=== PATIENT | female | born 1975 | race Caucasian/White ===

== ENCOUNTER 2017-02-01 21:25 | Inpatient (IN) | payer OTHER, MEDICARE ==
[~2017-02-01] VITALS: Ht 157.5 cm; Wt 78.0 kg
[~2017-02-01 21:25] MED LIST: BACT800T5 PO; CEPH500C3 PO; LASI20TA PO; MORP1INJ45 PO; OMEP20TA39 PO; ZOLP10TA3 PO; estrogen IM
[2017-02-01 21:28] VITALS: BP 150/93; PULSE 130; RESP 15; TEMP 99.2; O2SAT 100
--- NOTE | 2017-02-01 22:29 | PD ---
Physical Exam Date Seen by Provider: Feb 01, 2017 Time Seen by Provider: 22:26 Narrative 41 yo female here for evaluation of nausea and vomit and abdominal pain as well as diarrhea. Most of the pain is in the lower abdomen. On going since Saturday morning. no chest pain or SOB. Called doctor and told her to come here. BM is bile and mucosy per patient. No blood in emesis or BM. Pain is 7/10. Vitals sign stable. Patient awaiting bed placement. Data Data Last Documented VS Vital Signs Date Time Temp Pulse Resp B/P Pulse Ox O2 Delivery O2 Flow Rate FiO2 02/01/17 21:28 99.2 130 15 150/93 100 Room Air [facility] Medical Record Reviewed: Yes Supervised Visit with ARVIN: Pawan De Jesus Feb 01, 2017 22:29
[2017-02-01] MEDS ORDERED: SODIUM CHLOR 0.9% 1000 ML INJ 1,000 ML IV ONE (22:45)
[2017-02-01] MEDS ORDERED: ONDANSETRON HCL 4 MG/2 ML VIAL IV PUSH ONE (23:00)
--- NOTE | 2017-02-01 23:11 | PD ---
HPI Chief Complaint: GI Complaint Time Seen by Provider: 22:42 Travel History International Travel<30 days: No Contact w/Intl Traveler<30days: No Traveled to known affect area: No History of Present Illness HPI 41 y/o female presents with nonbloody emesis, diarrhea and lower abdominal pain. Location is Lower abdomen. Quality is sharp. She states no specific modifying factors. She denies migration of the pain. She states also over the past couple of days she's been having for she feels like her heart is going fast and getting sweaty. She states that she has no other concurrent complaints. PFSH Past Medical History Arthritis: No Asthma: No Autoimmune Disease: No Blood Disorders: No Anxiety: No Depression: No Heart Rhythm Problems: Yes (PALPITATIONS AND ERADIC HR) Cancer: Yes (CERVICAL CA WITH HYSTERECTOMY) Cardiovascular Problems: Yes (PALP, IRREG HEAR RATE) High Cholesterol: No Chemotherapy: No Chest Pain: No Congestive Heart Failure: No COPD: Yes (EMPHYSEMA) Cerebrovascular Accident: No Diabetes: Yes (diet controlled) Diminished Hearing: No Endocrine: No GERD: Yes Glaucoma: No Headaches: No Hepatitis: No Hiatal Hernia: No Hypertension: Yes Immune Disorder: No Implanted Vascular Access Dvce: Yes Kidney Stones: No Medical other: Yes (CHRONS) Neurologic: No Psychiatric: No Integumentary: Yes (MRSA IN L BUTTOCK 09/11) Migraines: Yes Myocardial Infarction: No Radiation Therapy: No Renal Failure: No Seizures: No Sickle Cell Disease: No Sleep Apnea: No Thyroid Disease: No Ulcer: No Tetanus Vaccination: < 5 Years Influenza Vaccination: No ?: Not Menopausal: Yes : 3 Para: 2 Miscarriage: 1 Past Surgical History Abdominal Surgery: No AICD: No Body Medical Devices: RODS SCREWS IN BACK Cardiac Surgery: No Cholecystectomy: Yes Ear Surgery: No Endocrine Surgery: No Eye Surgery: No Genitourinary Surgery: Yes (URETHRA/ SX REPAIR) Hysterectomy: Yes Joint Replacement: No Neurologic Surgery: No Oral Surgery: No Pacemaker: No Thoracic Surgery: No Tonsillectomy: Yes Social History Alcohol Use: No Tobacco Use: Yes (12/08 PPD) Substance Use: Yes (marijuana) Allergies-Medications (Allergen,Severity, Reaction): Coded Allergies: Aspirin (Verified Allergy, Intermediate, Nausea/Vomiting, 02/01/17) Contrast Media (Verified Adverse Reaction, Intermediate, VOMITING, 02/01/17 ) Nonsteroidal Anti-Inflammatory Agts (Verified Adverse Reaction, Intermediate, Nausea/Vomiting, 02/01/17) *MDRO Multi-Drug Resistant Organism (Verified Adverse Reaction, Unknown, ) MRSA Reported Meds & Prescriptions Reported Meds & Active Scripts Active Lasix (Furosemide) 20 Mg Tab 60 Mg PO DAILY 3 Days Keflex (Cephalexin Monohydrate) 500 Mg Cap 500 Mg PO QID Bactrim DS (Sulfamethoxazole-Trimethoprim DS) 1 Tab Tab 1 Tab PO BID 10 Days Hm Omeprazole (Omeprazole) 20 Mg Tab 40 Mg PO DAILY 30 Days Reported Morphine Sulfate Ir 15 mg (Morphine Sulfate) 15 Mg Tab 15 Mg PO Q6H PRN [estrogen] 40 Mg IM MONTHLY Ambien 10 Mg Tab (Zolpidem Tartrate) 10 Mg Tab 10 Mg PO HS Review of Systems Except as stated in HPI: all other systems reviewed are Neg Physical Exam Narrative GENERAL: Well-nourished, well-developed patient. well appearing SKIN: Warm and dry. HEAD: Normocephalic and atraumatic. EYES: No injection or drainage. ENT: No nasal drainage noted. NECK: Supple, trachea midline. CARDIOVASCULAR: Regular rate and rhythm RESPIRATORY: Breath sounds equal bilaterally. No accessory muscle use. GASTROINTESTINAL: Abdomen soft, ttp in lower abdomen, nondistended. no rebound or guarding NEUROLOGICAL: Awake and alert. moves all extremities. Normal speech. Data Data Last Documented VS Vital Signs Date Time Temp Pulse Resp B/P Pulse Ox O2 Delivery O2 Flow Rate FiO2 02/01/17 21:28 99.2 130 15 150/93 100 Room Air Orders Complete Blood Count With Diff (02/01/17 22:42) Comprehensive Metabolic Panel (02/01/17 22:42) Urinalysis - C+S If Indicated (02/01/17 22:42) Lipase (02/01/17 22:42) Iv Access Insert/Monitor (02/01/17 22:42) Oximetry (02/01/17 22:42) Lactic Acid Sepsis Protocol (02/01/17 22:42) Blood Culture (02/01/17 22:42) Blood Glucose (02/01/17 22:42) Ecg Monitoring (02/01/17 22:42) Oxygen Administration (02/01/17 22:42) Ct Abd/Pel W/O Iv Contrast (02/01/17 22:42) Sodium Chlor 0.9% 1000 Ml Inj (Ns 1000 M (02/01/17 22:45) Ondansetron Inj (Zofran Inj) (02/01/17 23:00) Electrocardiogram (02/01/17 ) Sodium Chlor 0.9% 1000 Ml Inj (Ns 1000 M (02/02/17 00:00) Chest, Single Ap (02/01/17 ) Piperacil-Tazo 4.5 Gm Premix (Zosyn 4.5 (02/02/17 00:30) Admit Order (Ed Use Only) (02/02/17 01:09) Labs Laboratory Tests Test 02/01/17 23:05 White Blood Count 21.5 TH/MM3 Red Blood Count 5.39 MIL/MM3 Hemoglobin 15.8 GM/DL Hematocrit 45.1 % Mean Corpuscular Volume 83.6 FL Mean Corpuscular Hemoglobin 29.2 PG Mean Corpuscular Hemoglobin 35.0 % Concent Red Cell Distribution Width 13.3 % Platelet Count 337 TH/MM3 Mean Platelet Volume 7.7 FL Neutrophils (%) (Auto) 81.4 % Lymphocytes (%) (Auto) 12.4 % Monocytes (%) (Auto) 5.4 % Eosinophils (%) (Auto) 0.4 % Basophils (%) (Auto) 0.4 % Neutrophils # (Auto) 17.5 TH/MM3 Lymphocytes # (Auto) 2.7 TH/MM3 Monocytes # (Auto) 1.2 TH/MM3 Eosinophils # (Auto) 0.1 TH/MM3 Basophils # (Auto) 0.1 TH/MM3 CBC Comment DIFF FINAL Differential Comment Urine Color STRAW Urine Turbidity CLEAR Urine pH 7.0 Urine Specific [place] 1.001 Urine Protein NEG mg/dL Urine Glucose (UA) NEG mg/dL Urine Ketones NEG mg/dL Urine Occult Blood NEG Urine Nitrite NEG Urine Bilirubin NEG Urine Urobilinogen LESS THAN 2.0 MG/DL Urine Leukocyte Esterase NEG Urine RBC LESS THAN 1 /hpf Urine Squamous Epithelial 1 /hpf Cells Microscopic Urinalysis Comment CULT NOT INDICATED Sodium Level 136 MEQ/L Potassium Level 3.8 MEQ/L Chloride Level 100 MEQ/L Carbon Dioxide Level 30.4 MEQ/L Anion Gap 6 MEQ/L Blood Urea Nitrogen 6 MG/DL Creatinine 0.74 MG/DL Estimat Glomerular Filtration 86 ML/MIN Rate Random Glucose 87 MG/DL Lactic Acid Level 1.5 mmol/L Calcium Level 9.6 MG/DL Total Bilirubin 0.4 MG/DL Aspartate Amino Transf 16 U/L (AST/SGOT) Alanine Aminotransferase 23 U/L (ALT/SGPT) Alkaline Phosphatase 99 U/L Total Protein 8.4 GM/DL Albumin 4.1 GM/DL Lipase 108 U/L MDM Medical Decision Making Medical Screen Exam Complete: Yes Emergency Medical Condition: Yes Medical Record Reviewed: Yes (pmh confirmed) Interpretation(s) CBC & BMP Diagram 02/01/17 23:05 Last 24 hours Impressions Abdomen/Pelvis CT 02/01/17 2242 Signed Impressions: Service Date/Time: Wednesday, February 01, 2017 23:31 - CONCLUSION: 1. Mild left-sided colitis suspected. No high-grade inflammatory changes. No associated complication demonstrated. 2. Noncontrast CT appearance of the small bowel within normal limits. Luis Leal MD Chest X-Ray 02/01/17 0000 Signed Impressions: Service Date/Time: Thursday, February 02, 2017 00:21 - CONCLUSION: No evidence of acute cardiopulmonary disease. Luis Leal MD Lactate within normal limits EKG shows NSR, no ST elevation or depression, and no arrhythmias. No significant T-wave inversions. Differential Diagnosis Crohn's exacerbation, abscess, gastroenteritis, stone, UTI Narrative Course Will check blood work, urinalysis, CT scan abdominal pelvis and dose with IV fluids, Zofran and reevaluate ed workup with colitis, patient agrees to admit and updated, heart rate improved after IV fluid hydration, antibiotics ordered Sepsis Criteria SIRS Criteria (2 or more): Heart rate over 90, WBC > 18077, < 4000 or > 10% bands Sepsis Criteria (SIRS+source): Infect source susp/known Criteria Outcome: Meets sepsis criteria Physician Communication Physician Communication dr lee agrees to admit Diagnosis Primary Impression: Sepsis Qualified Code: A41.9 - Sepsis, due to unspecified organism Additional Impressions: Colitis Vomiting Qualified Code: R11.10 - Vomiting, intractability of vomiting not specified, presence of nausea not specified, unspecified vomiting type Admitting Information Admitting Physician Requests: Admit Sabrina Stoll MD Feb 01, 2017 23:11
[2017-02-01 23:21] LABS: BLOOD, URINE NEG (NEG); GLUCOSE,URINE NEG (NEG); KETONE, URINE NEG (NEG); NITRITE,URINE NEG (NEG); SQUAMOUS EPITHELIAL CELL URINE 1 /hpf (0-5)
[2017-02-01 23:23] LABS: URINE COLOR STRAW (YELLW/STRAW)
[2017-02-01 23:24] LABS: COMMENT (UR) CULT NOT INDICATED; CULTURE IF INDICATED CULT NOT INDICATED
[2017-02-01 23:27] LABS: AUTOMATED NEUTROPHIL # 17.5 TH/MM3 (1.8-7.7); BASOPHIL # 0.1 TH/MM3 (0-0.2); BASOPHIL % 0.4 % (0.0-2.0); EOSINOPHIL # 0.1 TH/MM3 (0-0.4); EOSINOPHIL % 0.4 % (0.0-4.0); HEMATOCRIT 45.1 % (35.0-46.0); HEMO FLAGS DIFF FINAL; LYMPH % 12.4 % (9.0-44.0); LYMPHOCYTE # 2.7 TH/MM3 (1.0-4.8); MEAN CELL VOLUME 83.6 FL (80.0-100.0); MEAN CORPUSCULAR HEMOGLOBIN 29.2 PG (27.0-34.0); MONO % 5.4 % (0.0-8.0); NEUT % 81.4 % (16.0-70.0); PLATELET COUNT 337 TH/MM3 (150-450); RED BLOOD COUNT 5.39 MIL/MM3 (4.00-5.30); RED CELL DISTRIBUTION WIDTH 13.3 % (11.6-17.2); WHITE BLOOD COUNT 21.5 TH/MM3 (4.0-11.0)
[2017-02-01 23:44] LABS: ANION GAP 6 MEQ/L (5-15); AST (GOT) 16 U/L (15-37); BICARBONATE 30.4 MEQ/L (21.0-32.0); BLOOD UREA NITROGEN 6 MG/DL (7-18); CHLORIDE 100 MEQ/L (98-107); GLOMERULAR FILTRATION RATE 86 ML/MIN (>89); POTASSIUM 3.8 MEQ/L (3.5-5.1); SODIUM (NA) 136 MEQ/L (136-145)
[2017-02-01 23:47] LABS: ALKALINE PHOSPHATASE 99 U/L (45-117); ALT (GPT) 23 U/L (10-53); TOTAL BILIRUBIN ADULT 0.4 MG/DL (0.2-1.0)
[2017-02-02] VITALS (8 sets, daily range): BP systolic 103–148; BP diastolic 57–72; PULSE 62–90; RESP 16–18; TEMP 97.3–97.8; O2SAT 97–98
[2017-02-02] MEDS ORDERED: SODIUM CHLOR 0.9% 1000 ML INJ 1,000 ML IV ONE
--- NOTE | 2017-02-02 00:17 | RADRPT ---
EXAM DATE/TIME: 02/01/2017 23:31 [facility] COMPARISON: CT ABDOMEN & PELVIS W/O CONTRAST, September 30, 2014, 17:04. INDICATIONS : Abdominal pain. ORAL CONTRAST: No oral contrast ingested. RADIATION DOSE: 12.32 CTDIvol (mGy) MEDICAL HISTORY : Hypertension. Crohns disease. SURGICAL HISTORY : Hysterectomy. Fusion, lumbar.Fusion pump ENCOUNTER: Initial ACUITY: 1 day PAIN SCALE: 5/10 LOCATION: abdomen TECHNIQUE: Volumetric scanning of the abdomen and pelvis was performed. Using automated exposure control and ad justment of the mA and/or kV according to patient size, radiation dose was kept as low as reasonably achievable to obtain optimal diagnostic quality images. FINDINGS: LOWER LUNGS: The visualized lower lungs are clear. LIVER: Homogeneous density without lesion. There is no dilation of the biliary tree. Previous cholecystecto my. SPLEEN: Normal size without lesion. PANCREAS: Within normal limits. KIDNEYS: Normal in size and shape. There is no mass, stone, or hydronephrosis. ADRENAL GLANDS: Within normal limits. VASCULAR: There is no aortic aneurysm. BOWEL/MESENTERY: Patchy colonic wall thickening is noted, primarily descending and sigmoid portions. No pericolonic st randing noted. A few scattered diverticula are present. No perceptible wall thickening or inflammator y changes seen in the stomach or small bowel. There is no free fluid. No free air. The appendix is we ll-visualized, normal. ABDOMINAL WALL: Within normal limits. RETROPERITONEUM: There is no lymphadenopathy. BLADDER: No wall thickening or mass. REPRODUCTIVE: Within normal limits. INGUINAL: There is no lymphadenopathy or hernia. MUSCULOSKELETAL: No acute bony abnormality demonstrated. Fusion procedure changes at L5/S1 again noted. CONCLUSION: 1. Mild left-sided colitis suspected. No high-grade inflammatory changes. No associated complication demonstrated. 2. Noncontrast CT appearance of the small bowel within normal limits. Luis Leal MD on February 02, 2017 at 0:12 Board Certified Radiologist. This report was verified electronically.
[2017-02-02] MEDS ORDERED: PIPERACIL-TAZO 4.5 GM PREMIX 100 ML IV STA (00:30)
--- NOTE | 2017-02-02 00:50 | RADRPT ---
EXAM DATE/TIME: 02/02/2017 00:21 [facility] COMPARISON: CT ABDOMEN & PELVIS W/O CONTRAST, February 01, 2017, 23:31. CHEST SINGLE AP, August 03, 2014, 1:17. INDICATIONS : Chest discomfort. MEDICAL HISTORY : None. SURGICAL HISTORY : None. ENCOUNTER: Initial ACUITY: 1 day PAIN SCORE: 6/10 LOCATION: Bilateral chest FINDINGS: A single view of the chest demonstrates the lungs to be symmetrically aerated without evidence of mas s, infiltrate or effusion. The cardiomediastinal contours are unremarkable. Osseous structures are intact. CONCLUSION: No evidence of acute cardiopulmonary disease. Luis Leal MD on February 02, 2017 at 0:48 Board Certified Radiologist. This report was verified electronically.
[2017-02-02] MEDS ORDERED: BISACODYL 10 MG SUPP RECTAL PRN (01:45)
[2017-02-02] MEDS ORDERED: ACETAMINOPHEN 325 MG TAB PO PRN (01:45)
[2017-02-02] MEDS ORDERED: SODIUM CHLORIDE 0.9% FLUSH 10 ML FLUSH IV FLUSH PRN (01:45)
[2017-02-02] MEDS ORDERED: MSIR15 PO (01:58)
[2017-02-02] MEDS: metroNIDAZOLE 500 MG INJ 100 ML IV SCH ×3 (02:23→18:34)
[2017-02-02] MEDS: SODIUM CHLOR 0.9% 1000 ML INJ 1,000 ML IV SCH ×3 (02:23→15:56)
--- NOTE | 2017-02-02 02:55 | HHI.HP ---
HPI Service [facility] Primary Care Physician Maty Costa MD Admission Diagnosis colitis Diagnoses: (1) Sepsis Diagnosis: Principal (2) Colitis Diagnosis: Principal (3) Crohn's disease Diagnosis: Principal (4) Tobacco abuse Diagnosis: Principal Travel History International Travel<30 Days: No Contact w/Intl Traveler <30 Da: No Traveled to Known Affected Are: No History of Present Illness This is a 41-year-old female with a PMH of Crohn's Disease, Cervical CA s/p Hysterectomy, COPD and Diet Controlled DM who presented to the ER with complaints of abdominal pain, nausea, vomiting and diarrhea x2-3 days. Denies fever, chills, SOB or sick contacts. On arrival, BP 150/93, HR 1:30, O2 sat 100 % on RA, Temp 99.2. WBC 21.5. Chemistry essentially unremarkable except for GFR of 86. UA negative. CXR with no acute findings. CT Abd/Pelvis w/ mild left-sided colitis. S/p Zosyn in ER. Follows w/ Dr. Campos as outpatient for h/ o Crohn's. Review of Systems Except as stated in HPI: all other systems reviewed are Neg ROS: 14 point review of systems otherwise negative. Past Family Social History Past Medical History PMH: Crohn's Disease, Cervical CA s/p Hysterectomy, COPD and Diet Controlled D Past Surgical History PAST SURGICAL HISTORY: Hysterectomy, Cholecystectomy, Tonsillectomy, Back Surgery Allergies: Coded Allergies: Aspirin (Verified Allergy, Intermediate, Nausea/Vomiting, 02/01/17) Contrast Media (Verified Adverse Reaction, Intermediate, VOMITING, 02/01/17 ) Nonsteroidal Anti-Inflammatory Agts (Verified Adverse Reaction, Intermediate, Nausea/Vomiting, 02/01/17) *MDRO Multi-Drug Resistant Organism (Verified Adverse Reaction, Unknown, ) MRSA Family History PAST FAMILY HISTORY: Reviewed. No h/o DM or CAD Social History PAST SOCIAL HISTORY: Negative for alcohol. Smokes 1ppd. Positive for Marijuana. Physical Exam Vital Signs Vital Signs Date Time Temp Pulse Resp B/P Pulse Ox O2 Delivery O2 Flow Rate FiO2 02/02/17 02:13 97 Room Air 02/02/17 02:12 80 110/57 02/01/17 21:28 99.2 130 15 150/93 100 Room Air Physical Exam PE: GENERAL: Middle-aged female in no acute distress. HEENT: PERRLA, EOMI. No scleral icterus or conjunctival pallor. No lid lag or facial droop. CARDIOVASCULAR: Regular rate and rhythm. No obvious murmurs to auscultation. No chest tenderness to palpation. RESPIRATORY: No obvious rhonchi or wheezing. Clear to auscultation. Breath sounds equal bilaterally. GASTROINTESTINAL: Abdomen soft, mild generalized tenderness to palpation, nondistended. BS normal. MUSCULOSKELETAL: Extremities without clubbing, cyanosis, or edema. No obvious deformities. NEUROLOGICAL: Awake, alert and oriented x4. No focal neurologic deficits. Moving both upper and lower extremities spontaneously. Laboratory Laboratory Tests Test 02/01/17 23:05 White Blood Count 21.5 Red Blood Count 5.39 Hemoglobin 15.8 Hematocrit 45.1 Mean Corpuscular Volume 83.6 Mean Corpuscular Hemoglobin 29.2 Mean Corpuscular Hemoglobin 35.0 Concent Red Cell Distribution Width 13.3 Platelet Count 337 Mean Platelet Volume 7.7 Neutrophils (%) (Auto) 81.4 Lymphocytes (%) (Auto) 12.4 Monocytes (%) (Auto) 5.4 Eosinophils (%) (Auto) 0.4 Basophils (%) (Auto) 0.4 Neutrophils # (Auto) 17.5 Lymphocytes # (Auto) 2.7 Monocytes # (Auto) 1.2 Eosinophils # (Auto) 0.1 Basophils # (Auto) 0.1 CBC Comment DIFF FINAL Differential Comment Urine Color STRAW Urine Turbidity CLEAR Urine pH 7.0 Urine Specific [place] 1.001 Urine Protein NEG Urine Glucose (UA) NEG Urine Ketones NEG Urine Occult Blood NEG Urine Nitrite NEG Urine Bilirubin NEG Urine Urobilinogen LESS THAN 2.0 Urine Leukocyte Esterase NEG Urine RBC LESS THAN 1 Urine Squamous Epithelial 1 Cells Microscopic Urinalysis Comment CULT NOT INDICATED Sodium Level 136 Potassium Level 3.8 Chloride Level 100 Carbon Dioxide Level 30.4 Anion Gap 6 Blood Urea Nitrogen 6 Creatinine 0.74 Estimat Glomerular Filtration 86 Rate Random Glucose 87 Lactic Acid Level 1.5 Calcium Level 9.6 Total Bilirubin 0.4 Aspartate Amino Transf 16 (AST/SGOT) Alanine Aminotransferase 23 (ALT/SGPT) Alkaline Phosphatase 99 Total Protein 8.4 Albumin 4.1 Lipase 108 Date/Time Procedure Status Source Growth 02/01/17 23:05 Aerobic Blood Culture Received Blood Peripheral Pending 02/01/17 23:05 Anaerobic Blood Culture Received Blood Peripheral Pending Result Diagram: 02/01/17 2305 02/01/17 2305 Assessment and Plan Problem List: (1) Sepsis ICD Code: A41.9 Status: Acute (2) Colitis ICD Code: K52.9 Status: Acute (3) Crohn's disease ICD Code: K50.90 Status: Acute (4) Tobacco abuse ICD Code: Z72.0 Status: Acute Assessment and Plan A/P: 1. Sepsis: Temp 99.2, HR 130, WBC 21, Source-Colitis. S/p Blood Cultures and Zosyn IV in ER. Follow up cultures, continue IV Abx, IVF for hydration. CXR w / no acute findings, images reviewed by me. 2. Colitis: CT Abd/Pelvis w/ mild left-sided colitis suspected, images reviewed by me. S/p IV Zosyn in ER, will continue w/ IV Abx, analgesics/ antiemetics as needed. 3. Crohn's Disease: Follows w/ Dr. Campos as outpatient, will consult for further evaluation. 4. Tobacco Abuse: Pt counselled on the need to quit. NicoDerm prn if needed. 5. DVT Prophylaxis: SCD/Teds. 6. Social work for d/c planning as needed. 7. Case discussed w/ ER physician at length. Physician Certification 2 Midnight Certification Type: Admission for Inpatient Services Order for Inpatient Services The services are ordered in accordance with Medicare regulations or non- Medicare payer requirements, as applicable. In the case of services not specified as inpatient-only, they are appropriately provided as inpatient services in accordance with the 2-midnight benchmark. Estimated LOS (days): 2 days is the estimated time the patient will need to remain in the hospital, assuming treatment plan goals are met and no additional complications. Post-Hospital Plan: Home Problem Qualifiers (1) Sepsis: Qualified Code: A41.9 - Sepsis, due to unspecified organism Bethany Durant MD Feb 02, 2017 02:55
[2017-02-02] MEDS: MORPHINE SULFATE 4 MG/ML INJ IV PRN ×6 (04:38→23:24)
[2017-02-02] MEDS: SODIUM CHLORIDE 0.9% FLUSH 10 ML FLUSH IV FLUSH SCH ×2 (08:07→19:43)
[2017-02-02] MEDS: CIPROFLOXACIN 400 MG PREMIX 200 ML IV SCH ×2 (08:09→19:43)
[2017-02-02] MEDS: ONDANSETRON HCL 4 MG/2 ML VIAL IVP PRN ×3 (08:09→23:24)
--- NOTE | 2017-02-02 16:13 | PD.CONS ---
HPI History of Present Illness This is a 41 year old female who presented to the ER for worsening abdominal pain, N/V/D. Reports abdominal pain in located at upper mid and lower abdominal area. Abdominal pain was initially constant, but now it is intermittent. Reports she starts noticing pain coming back as her pain medication starts to wear off. Has nausea today and emesis x 1 this morning. Has not had any diarrhea today. Denies hematemesis or hematochezia. PMH significant for Crohn's Disease, cervical cancer (s/p hysterectomy), COPD, and DM. She is a patient of Dr. Campos. Reports that she had a colonoscopy/EGD scheduled for next Saturday with her. She was also given lab order for stool studies. (Jia Romano) PFSH Past Medical History -Crohn's Disease -Cervical CA s/p Hysterectomy -COPD -DM (diet controlled) Past Surgical History -Hysterectomy -Cholecystectomy -Tonsillectomy -Back Surgery (Jia Romano) Coded Allergies: Aspirin (Verified Allergy, Intermediate, Nausea/Vomiting, 02/01/17) Contrast Media (Verified Adverse Reaction, Intermediate, VOMITING, 02/01/17 ) Nonsteroidal Anti-Inflammatory Agts (Verified Adverse Reaction, Intermediate, Nausea/Vomiting, 02/01/17) *MDRO Multi-Drug Resistant Organism (Verified Adverse Reaction, Unknown, ) MRSA Medications Current Medications Medications (Trade) Dose Ordered Sig/Petey Route PRN Reason Start Time Stop Time Status Last Admin Dose Admin Ciprofloxacin/ Dextrose 200 ml @ 200 mls/hr Q12H IV 02/02/17 09:00 02/02/17 08:09 Metronidazole 100 ml @ 100 mls/hr Q8H IV 02/02/17 02:00 02/02/17 11:25 Sodium Chloride (NS 1000 ml Inj) 1,000 ml @ 100 mls/hr Q10H IV 02/02/17 01:33 02/02/17 02:23 Sodium Chloride (NS Flush) 2 ml UNSCH PRN IV FLUSH FLUSH AFTER USING IV ACCESS 02/02/17 01:45 Sodium Chloride (NS Flush) 2 ml BID IV FLUSH 02/02/17 09:00 Ondansetron HCl (Zofran Inj) 4 mg Q6H PRN IVP NAUSEA OR VOMITING 4/29/17 01:45 02/02/17 08:09 Bisacodyl (Dulcolax Supp) 10 mg DAILY PRN RECTAL CONSTIPATION 02/02/17 01:45 Acetaminophen (Tylenol) 650 mg Q6H PRN PO FEVER/PAIN SCALE 1 TO 2 02/02/17 01:45 Acetaminophen/ Hydrocodone Bitart (Gonzales 5-325 Mg) 1 tab Q4H PRN PO PAIN SCALE 3 TO 5 02/02/17 01:45 Morphine Sulfate (Morphine Inj) 2 mg Q3H PRN IV Pain 6-10 02/02/17 01:45 02/02/17 12:57 Zolpidem Tartrate (Ambien) 10 mg HS PO 02/02/17 21:00 Family History No significant family history. Social History ETOH: Denies Tobacco: 1 PPD Illicit Drugs: Marijuana (Jia Romano) Review of Systems Constitutional: DENIES: Diaphoretic episodes, Fatigue, Fever, Weight gain, Weight loss, Chills, Dizziness, Change in appetite, Night Sweats Endocrine: DENIES: Polydipsia, Polyuria Eyes: DENIES: Blurred vision, Photosensitivity, Double Vision Ears, nose, mouth, throat: DENIES: Hearing loss, Vertigo, Oral lesions, Throat pain, Hoarseness Respiratory: DENIES: Cough, Wheezing, Hemoptysis, Sputum production, Shortness of breath Cardiovascular: DENIES: Chest pain, Palpitations, Syncope, Lower Extremity Edema, Orthopnea, Claudication Gastrointestinal: COMPLAINS OF: Abdominal pain, Diarrhea, Nausea, Vomiting, DENIES: Black stools, Bloody stools, Constipation, Difficulty Swallowing, Anorexia, Odynophagia, Swelling of Abdomen, Heartburn, Hematemesis Genitourinary: DENIES: Urinary frequency, Urinary incontinence, Urgency, Hematuria, Dysuria, Nocturia Musculoskeletal: DENIES: Joint pain, Muscle aches, Stiffness, Joint Swelling, Back pain, Neck pain Integumentary: DENIES: Abnormal pigmentation, Nail changes, Pruritus, Rash, Jaundice Hematologic/lymphatic: DENIES: Bruising, Lymphadenopathy Immunologic/allergic: DENIES: Eczema, Urticaria Neurologic: DENIES: Abnormal gait, Headache, Localized weakness, Paresthesias Psychiatric: DENIES: Anxiety, Confusion, Mood changes, Depression, Agitation, Suicidal Ideation (Jia Romano) GI Exam Vitals I&O Vital Signs Date Time Temp Pulse Resp B/P Pulse Ox O2 Delivery O2 Flow Rate FiO2 02/02/17 12:00 97.4 68 16 103/59 98 02/02/17 08:00 97.3 69 16 126/61 98 02/02/17 04:46 72 02/02/17 04:13 97.8 80 18 132/65 98 02/02/17 02:13 97 Room Air 02/02/17 02:12 80 110/57 02/01/17 21:28 99.2 130 15 150/93 100 Room Air I/O 02/01/17 02/01/17 02/01/17 02/02/17 02/02/17 02/02/17 07:00 15:00 23:00 07:00 15:00 23:00 Intake Total 360 ml 2922 ml Output Total 200 ml Balance 360 ml 2722 ml Intake Oral 360 ml 1680 ml IV Total 1242 ml Output Urine Total 200 ml # Voids 1 # Bowel Movements 0 Imaging Last Impressions Abdomen/Pelvis CT 02/01/17 2242 Signed Impressions: Service Date/Time: Wednesday, February 01, 2017 23:31 - CONCLUSION: 1. Mild left-sided colitis suspected. No high-grade inflammatory changes. No associated complication demonstrated. 2. Noncontrast CT appearance of the small bowel within normal limits. Luis Leal MD Chest X-Ray 02/01/17 0000 Signed Impressions: Service Date/Time: Thursday, February 02, 2017 00:21 - CONCLUSION: No evidence of acute cardiopulmonary disease. Luis Leal MD Laboratory Test 02/01/17 23:05 White Blood Count 21.5 TH/MM3 Red Blood Count 5.39 MIL/MM3 Hemoglobin 15.8 GM/DL Hematocrit 45.1 % Mean Corpuscular Volume 83.6 FL Mean Corpuscular Hemoglobin 29.2 PG Mean Corpuscular Hemoglobin 35.0 % Concent Red Cell Distribution Width 13.3 % Platelet Count 337 TH/MM3 Mean Platelet Volume 7.7 FL Neutrophils (%) (Auto) 81.4 % Lymphocytes (%) (Auto) 12.4 % Monocytes (%) (Auto) 5.4 % Eosinophils (%) (Auto) 0.4 % Basophils (%) (Auto) 0.4 % Neutrophils # (Auto) 17.5 TH/MM3 Lymphocytes # (Auto) 2.7 TH/MM3 Monocytes # (Auto) 1.2 TH/MM3 Eosinophils # (Auto) 0.1 TH/MM3 Basophils # (Auto) 0.1 TH/MM3 CBC Comment DIFF FINAL Differential Comment Urine Color STRAW Urine Turbidity CLEAR Urine pH 7.0 Urine Specific [place] 1.001 Urine Protein NEG mg/dL Urine Glucose (UA) NEG mg/dL Urine Ketones NEG mg/dL Urine Occult Blood NEG Urine Nitrite NEG Urine Bilirubin NEG Urine Urobilinogen LESS THAN 2.0 MG/DL Urine Leukocyte Esterase NEG Urine RBC LESS THAN 1 /hpf Urine Squamous Epithelial 1 /hpf Cells Microscopic Urinalysis Comment CULT NOT INDICATED Sodium Level 136 MEQ/L Potassium Level 3.8 MEQ/L Chloride Level 100 MEQ/L Carbon Dioxide Level 30.4 MEQ/L Anion Gap 6 MEQ/L Blood Urea Nitrogen 6 MG/DL Creatinine 0.74 MG/DL Estimat Glomerular Filtration 86 ML/MIN Rate Random Glucose 87 MG/DL Lactic Acid Level 1.5 mmol/L Calcium Level 9.6 MG/DL Total Bilirubin 0.4 MG/DL Aspartate Amino Transf 16 U/L (AST/SGOT) Alanine Aminotransferase 23 U/L (ALT/SGPT) Alkaline Phosphatase 99 U/L Total Protein 8.4 GM/DL Albumin 4.1 GM/DL Lipase 108 U/L Date/Time Procedure Status Source Growth 02/01/17 23:05 Aerobic Blood Culture - Preliminary Resulted Blood Peripheral NO GROWTH IN 1 DAY 02/01/17 23:05 Anaerobic Blood Culture - Preliminary Resulted Blood Peripheral NO GROWTH IN 1 DAY Physical Examination HEENT: PERRLA; normocephalic; atraumatic; no jaundice. Throat is clear. NECK: Neck is supple, no JVD, no lymphadenopathy. CHEST: CTA CARDIAC: RRR. ABDOMEN: Soft, mild tenderness on palpation (generalized), no hepatosplenomegaly; bowel sounds are present. EXTREMITIES: No clubbing, cyanosis, or edema. SKIN: Normal; no rash; no jaundice. COLLECTION COORDINATOR: No focal deficits; A & O x3. (Jia Romano) Assessment and Plan Plan ASSESSMENT: Colitis: Abdomen/Pelvis CT 02/01/17-- 1. Mild left-sided colitis suspected. No high-grade inflammatory changes. No associated complication demonstrated. 2. Noncontrast CT appearance of the small bowel within normal limits. Crohn's Disease: Followed by Dr. Campos. Had EGD/Colonoscopy scheduled for next week as outpatient. Patient is not on any medication for Crohn's. Patient having abdominal pain, N/V/D. Sepsis: Per primary, source-colitis. WBC 21.5. S/P blood cultures, no growth in 1 day. PLAN: -EGD/Colonoscopy on Saturday -Obtain consents -Clear liquids Saturday -NPO after MN on Saturday night -Stool studies for Cdiff -Further recommendations to follow based on results of above. Patient seen and examined by Dr. Quiñones and myself and this note is written on his behalf. (Jia Romano) Physician Comments Patient is seen and examined Agree with above Continue with current supportive care Monitor labs Patient presenting with abdominal pain with chronic diarrhea and abnormal findings on CT suggestive of colitis with leukocytosis We will obtain stool studies to rule out C. difficile We plan on pursuing an EGD and a colonoscopy on Saturday Further recommendations shall depend on the hospital course (Donavan Quiñones MD) Jia Romano Feb 02, 2017 16:13 Donavan Quiñones MD Feb 02, 2017 17:24
--- NOTE | 2017-02-02 19:09 | EKG ---
Date Performed: 02/01/2017 Time Performed: 23:55:07 PTAGE: 41 years EKG: Sinus rhythm WITH SINUS ARRHYTHMIA NORMAL ECG PREVIOUS TRACING : 12/18/2008 01.40 Compared to prior tracing no significant change DOCTOR: Monica Chappell Interpretating Date/Time 02/02/2017 19:07:44
[2017-02-02] MEDS: ZOLPIDEM TARTRATE 10 MG TAB PO SCH (23:23)
[2017-02-03] VITALS: BP 150/89; PULSE 75; RESP 18; TEMP 96.8; O2SAT 97
[2017-02-03] MEDS: metroNIDAZOLE 500 MG INJ 100 ML IV SCH ×3 (02:11→16:56)
[2017-02-03] MEDS: MORPHINE SULFATE 4 MG/ML INJ IV PRN ×6 (02:21→23:00)
[2017-02-03 04:59] VITALS: BP 126/67; PULSE 82; RESP 18; TEMP 97.3; O2SAT 96
[2017-02-03 05:39] LABS: AUTOMATED NEUTROPHIL # 9.5 TH/MM3 (1.8-7.7); BASOPHIL # 0.1 TH/MM3 (0-0.2); BASOPHIL % 0.4 % (0.0-2.0); EOSINOPHIL # 0.1 TH/MM3 (0-0.4); HEMATOCRIT 41.6 % (35.0-46.0); HEMO FLAGS DIFF FINAL; LYMPH % 25.4 % (9.0-44.0); LYMPHOCYTE # 3.7 TH/MM3 (1.0-4.8); MEAN CELL VOLUME 85.9 FL (80.0-100.0); MEAN CORPUSCULAR HEMOGLOBIN 28.1 PG (27.0-34.0); MEAN CORPUSCULAR HGB CONC 32.7 % (32.0-36.0); MONO % 7.4 % (0.0-8.0); NEUT % 65.8 % (16.0-70.0); PLATELET COUNT 287 TH/MM3 (150-450); RED BLOOD COUNT 4.85 MIL/MM3 (4.00-5.30); RED CELL DISTRIBUTION WIDTH 13.2 % (11.6-17.2); WHITE BLOOD COUNT 14.4 TH/MM3 (4.0-11.0)
[2017-02-03 05:59] LABS: ALT (GPT) 28 U/L (10-53); ANION GAP 8 MEQ/L (5-15); AST (GOT) 26 U/L (15-37); BICARBONATE 25.4 MEQ/L (21.0-32.0); BLOOD UREA NITROGEN 2 MG/DL (7-18); CHLORIDE 105 MEQ/L (98-107); GLOMERULAR FILTRATION RATE 116 ML/MIN (>89); POTASSIUM 3.7 MEQ/L (3.5-5.1); SODIUM (NA) 138 MEQ/L (136-145)
[2017-02-03 06:01] LABS: ALKALINE PHOSPHATASE 81 U/L (45-117); TOTAL BILIRUBIN ADULT 0.5 MG/DL (0.2-1.0)
[2017-02-03] MEDS: ONDANSETRON HCL 4 MG/2 ML VIAL IVP PRN ×3 (06:33→21:22)
[2017-02-03 08:00] VITALS: BP 127/70; PULSE 87; RESP 16; TEMP 97.7; O2SAT 97
[2017-02-03 08:46] LABS: C. DIFF EPI 027 PRESUMPTIVE NEGATIVE (NEGATIVE); C. DIFF TOXIN PCR NEGATIVE (NEGATIVE)
[2017-02-03] MEDS: SODIUM CHLORIDE 0.9% FLUSH 10 ML FLUSH IV FLUSH SCH ×2 (09:00→21:00)
[2017-02-03] MEDS: SODIUM CHLOR 0.9% 1000 ML INJ 1,000 ML IV SCH ×3 (09:02→23:00)
[2017-02-03] MEDS: CIPROFLOXACIN 400 MG PREMIX 200 ML IV SCH ×2 (09:02→21:19)
[2017-02-03 12:00] VITALS: BP 119/58; PULSE 75; RESP 17; TEMP 97; O2SAT 97
[2017-02-03 16:00] VITALS: BP 114/64; PULSE 61; RESP 17; TEMP 97.2; O2SAT 98
[2017-02-03] MEDS ORDERED: PEG (High)/E-LYTE SOLN 4000 ML BTL PO ONE (16:00)
[2017-02-03 20:00] VITALS: BP 175/73; PULSE 70; RESP 17; TEMP 97.5; O2SAT 100
[2017-02-03] MEDS ORDERED: cloNIDine HCL 0.1 MG TAB PO PRN (20:45)
[2017-02-03] MEDS: ZOLPIDEM TARTRATE 10 MG TAB PO SCH (21:21)
[2017-02-03] MEDS: ACETAMINOPHEN/HYDROcodone 325 MG/5 MG TAB PO PRN (21:21)
[2017-02-03] MEDS: MICONAZOLE NITRATE 200 MG VAG SUPP VAGINAL SCH (21:24)
--- NOTE | 2017-02-03 23:22 | HHI.PR ---
Subjective Remarks patient seen this afternoon around 4 PM. Says she is feeling a little better. Normal pain improving. Objective Vital Signs Date Time Temp Pulse Resp B/P Pulse Ox O2 Delivery O2 Flow Rate FiO2 02/03/17 20:00 97.5 70 17 175/73 100 02/03/17 16:00 97.2 61 17 114/64 98 02/03/17 12:00 97.0 75 17 119/58 97 02/03/17 08:00 97.7 87 16 127/70 97 02/03/17 06:38 18 02/03/17 04:59 97.3 82 18 126/67 96 02/03/17 00:00 96.8 75 18 150/89 97 I/O 02/02/17 02/02/17 02/02/17 02/03/17 02/03/17 02/03/17 07:00 15:00 23:00 07:00 15:00 23:00 Intake Total 360 ml 2922 ml 947 ml 1530 ml 1329 ml 880 ml Output Total 200 ml 500 ml 1000 ml Balance 360 ml 2722 ml 947 ml 1530 ml 829 ml -120 ml Intake Oral 360 ml 1680 ml 480 ml 480 ml 480 ml 880 ml IV Total 1242 ml 467 ml 1050 ml 849 ml Output Urine Total 200 ml 500 ml 1000 ml # Voids 1 2 3 # Bowel Movements 0 2 1 1 Result Diagram: 02/03/17 0355 02/03/17 0355 Imaging Last Impressions Abdomen/Pelvis CT 02/01/17 2242 Signed Impressions: Service Date/Time: Wednesday, February 01, 2017 23:31 - CONCLUSION: 1. Mild left-sided colitis suspected. No high-grade inflammatory changes. No associated complication demonstrated. 2. Noncontrast CT appearance of the small bowel within normal limits. Luis Leal MD Chest X-Ray 02/01/17 0000 Signed Impressions: Service Date/Time: Thursday, February 02, 2017 00:21 - CONCLUSION: No evidence of acute cardiopulmonary disease. Luis Leal MD Objective Remarks GENERAL: patient sitting up in bed. Appears comfortable. Alert and oriented 3. SKIN: Warm and dry. HEAD: Normocephalic. EYES: No scleral icterus. No injection or drainage. NECK: Supple, trachea midline. No JVD CARDIOVASCULAR: Regular rate and rhythm without murmurs, gallops, or rubs. RESPIRATORY: Breath sounds equal bilaterally. No accessory muscle use. GASTROINTESTINAL: Abdomen soft, non-tender, nondistended. no rebound or guarding. MUSCULOSKELETAL: No cyanosis, or edema. BACK: Nontender without obvious deformity. No CVA tenderness. A/P Assessment and Plan //Sepsis: Temp 99.2, HR 130, WBC 21 on admission, Source-Colitis. S/p Blood Cultures and Zosyn IV in ER. Follow up cultures, continue IV Abx, IVF for hydration. CXR w/ no acute findings. = Improving area Continue IV antibiotics for colitis. // Colitis: CT Abd/Pelvis w/ mild left-sided colitis suspected, images reviewed by me. S/p IV Zosyn in ER, will continue w/ IV Abx, analgesics/ antiemetics as needed. = Appreciate GI assistance. Improving. Endoscopy planned. // Crohn's Disease: Follows w/ Dr. Campos as outpatient. -Gastroenterology following. Appreciate assistance. // Tobacco Abuse: Pt counselled on the need to quit. NicoDerm prn if needed. // DVT Prophylaxis: SCD/Teds. Discharge Planning endoscopy planned for tomorrow. Jama Heard MD Feb 03, 2017 23:22
--- NOTE | 2017-02-03 23:52 | HHI.GIFU ---
Subjective Remarks Comfortable in bed drinking the GoLYTELY no new complaints Objective Vitals I&O Vital Signs Date Time Temp Pulse Resp B/P Pulse Ox O2 Delivery O2 Flow Rate FiO2 02/03/17 20:00 97.5 70 17 175/73 100 02/03/17 16:00 97.2 61 17 114/64 98 02/03/17 12:00 97.0 75 17 119/58 97 02/03/17 08:00 97.7 87 16 127/70 97 02/03/17 06:38 18 02/03/17 04:59 97.3 82 18 126/67 96 02/03/17 00:00 96.8 75 18 150/89 97 I/O 02/02/17 02/02/17 02/02/17 02/03/17 02/03/17 02/03/17 07:00 15:00 23:00 07:00 15:00 23:00 Intake Total 360 ml 2922 ml 947 ml 1530 ml 1329 ml 880 ml Output Total 200 ml 500 ml 1000 ml Balance 360 ml 2722 ml 947 ml 1530 ml 829 ml -120 ml Intake Oral 360 ml 1680 ml 480 ml 480 ml 480 ml 880 ml IV Total 1242 ml 467 ml 1050 ml 849 ml Output Urine Total 200 ml 500 ml 1000 ml # Voids 1 2 3 # Bowel Movements 0 2 1 1 Laboratory Laboratory Tests Test 02/03/17 02/03/17 03:55 05:20 White Blood Count 14.4 Red Blood Count 4.85 Hemoglobin 13.6 Hematocrit 41.6 Mean Corpuscular Volume 85.9 Mean Corpuscular Hemoglobin 28.1 Mean Corpuscular Hemoglobin 32.7 Concent Red Cell Distribution Width 13.2 Platelet Count 287 Mean Platelet Volume 8.1 Neutrophils (%) (Auto) 65.8 Lymphocytes (%) (Auto) 25.4 Monocytes (%) (Auto) 7.4 Eosinophils (%) (Auto) 1.0 Basophils (%) (Auto) 0.4 Neutrophils # (Auto) 9.5 Lymphocytes # (Auto) 3.7 Monocytes # (Auto) 1.1 Eosinophils # (Auto) 0.1 Basophils # (Auto) 0.1 CBC Comment DIFF FINAL Differential Comment Sodium Level 138 Potassium Level 3.7 Chloride Level 105 Carbon Dioxide Level 25.4 Anion Gap 8 Blood Urea Nitrogen 2 Creatinine 0.57 Estimat Glomerular Filtration 116 Rate Random Glucose 122 Calcium Level 8.9 Total Bilirubin 0.5 Aspartate Amino Transf 26 (AST/SGOT) Alanine Aminotransferase 28 (ALT/SGPT) Alkaline Phosphatase 81 Total Protein 7.3 Albumin 3.6 Stool C. difficile Toxin (PCR) NEGATIVE Stl C. difficile Toxin PRESUMPTIVE Epiderm 027 NEGATIVE Date/Time Procedure Status Source Growth 02/01/17 23:05 Aerobic Blood Culture - Preliminary Resulted Blood Peripheral NO GROWTH IN 2 DAYS 02/01/17 23:05 Anaerobic Blood Culture - Preliminary Resulted Blood Peripheral NO GROWTH IN 2 DAYS Physical Exam HEENT: normocephalic; Throat is clear. NECK: Neck is supple, CHEST: Chest is clear to auscultation and percussion. CARDIAC: Regular rate and rhythm with no murmur gallop or rubs. ABDOMEN: Soft, nondistended, nontender; no hepatosplenomegaly; bowel sounds are present in all four quadrants. EXTREMITIES: No clubbing, cyanosis, or edema. SKIN: Normal; no rash; no jaundice. CARVER HAND: No focal deficits; alert and oriented times three. Assessment and Plan Plan ASSESSMENT: Colitis: Abdomen/Pelvis CT 02/01/17-- 1. Mild left-sided colitis suspected. No high-grade inflammatory changes. No associated complication demonstrated. 2. Noncontrast CT appearance of the small bowel within normal limits. Crohn's Disease: Followed by Dr. Campos. Had EGD/Colonoscopy scheduled for next week as outpatient. Patient is not on any medication for Crohn's. Patient having abdominal pain, N/V/D. Sepsis: Per primary, source-colitis. WBC 21.5. S/P blood cultures, no growth in 1 day. PLAN: -EGD/Colonoscopy on Saturday -Obtain consents -Clear liquids Saturday -NPO after MN on Saturday night -Stool studies for Cdiff are negative -Further recommendations to follow based on results of above. Donavan Quiñones MD Feb 03, 2017 23:52
[2017-02-04] VITALS (9 sets, daily range): BP systolic 106–174; BP diastolic 44–82; PULSE 57–96; RESP 17–20; TEMP 96.1–98; O2SAT 94–99
[2017-02-04] MEDS ORDERED: LACTATED RINGER'S 1000 ML IV PRN (02:30)
[2017-02-04] MEDS ORDERED: CHLORHEXIDINE GLUCONATE 2 % 1 PACK (2 CLOTHS) TOPICAL PRN (02:30)
[2017-02-04] MEDS: ONDANSETRON HCL 4 MG/2 ML VIAL IVP PRN ×4 (03:49→20:16)
[2017-02-04] MEDS: MORPHINE SULFATE 4 MG/ML INJ IV PRN ×6 (03:50→23:18)
[2017-02-04] MEDS: metroNIDAZOLE 500 MG INJ 100 ML IV SCH ×3 (03:50→17:28)
[2017-02-04 06:51] LABS: ANION GAP 9 MEQ/L (5-15); BICARBONATE 29.8 MEQ/L (21.0-32.0); BLOOD UREA NITROGEN LESS THAN 1 MG/DL (7-18); CHLORIDE 101 MEQ/L (98-107); GLOMERULAR FILTRATION RATE 107 ML/MIN (>89); MAGNESIUM 2.2 MG/DL (1.5-2.5); POTASSIUM 3.9 MEQ/L (3.5-5.1); SODIUM (NA) 140 MEQ/L (136-145)
[2017-02-04 07:10] LABS: AUTOMATED NEUTROPHIL # 8.7 TH/MM3 (1.8-7.7); BASOPHIL % 0.3 % (0.0-2.0); EOSINOPHIL # 0.2 TH/MM3 (0-0.4); EOSINOPHIL % 1.2 % (0.0-4.0); HEMATOCRIT 40.1 % (35.0-46.0); HEMO FLAGS DIFF FINAL; LYMPH % 25.4 % (9.0-44.0); LYMPHOCYTE # 3.4 TH/MM3 (1.0-4.8); MEAN CELL VOLUME 85.3 FL (80.0-100.0); MEAN CORPUSCULAR HEMOGLOBIN 28.2 PG (27.0-34.0); MONO % 7.7 % (0.0-8.0); NEUT % 65.4 % (16.0-70.0); PLATELET COUNT 291 TH/MM3 (150-450); RED CELL DISTRIBUTION WIDTH 13.4 % (11.6-17.2); WHITE BLOOD COUNT 13.3 TH/MM3 (4.0-11.0)
[2017-02-04] MEDS: SODIUM CHLORIDE 0.9% FLUSH 10 ML FLUSH IV FLUSH SCH ×2 (08:34→20:21)
[2017-02-04] MEDS: SODIUM CHLOR 0.9% 1000 ML INJ 1,000 ML IV SCH (08:34)
[2017-02-04] MEDS: CIPROFLOXACIN 400 MG PREMIX 200 ML IV SCH ×2 (08:34→20:21)
[2017-02-04] MEDS ORDERED: PROPOFOL 200 MG/20 ML AMP IV ONE (09:21)
--- NOTE | 2017-02-04 09:45 | GIPROC ---
[facility] [address] [facility]. [facility], [address] EGD PROCEDURE REPORT EXAM DATE: 02/04/2017 PATIENT NAME: Charline Burns MR #: [id number] BIRTHDATE: 1975 ATTENDING: Tiki Thakur MD ORDER #: [id number] [employer] AGENT: Delmy Ennis and Blake San STATUS: inpatient INDICATIONS: The patient is a 41 yr old female here for an EGD due to abdominal pain PROCEDURE PERFORMED: EGD w/ biopsy MEDICATIONS: None and Per Anesthesia. TOPICAL ANESTHETIC: CONSENT: The patient understands the risks and benefits of the procedure and understands that these risks include, but are not limited to: sedation, allergic reaction, infection, perforation and/or bleeding. Alternative means of evaluation and treatment include, among others: physical exam, x-rays, and/or surgical intervention. The patient elects to proceed with this endoscopic procedure. medical equipment was checked for proper function. Hand hygiene and appropriate measures for infection prevention was taken. After the risks, benefits and alternatives of the procedure were thoroughly explained, Informed consent was verified, confirmed and timeout was successfully executed by the treatment team. The patient was anesthetized with topical anesthesia and the EC-[id number] (Pedi C) endoscope was introduced through the mouth and advanced to the second portion of the duodenum. Retroflexed views revealed no abnormalities The gastroscope was then slowly withdrawn and removed. ESOPHAGUS: There was LA Class A esophagitis noted. A biopsy was performed using cold forceps. Sample sent for histology. STOMACH: There was erythematous severe gastritis in the gastric antrum. A biopsy was performed using cold forceps. Sample sent for histology. DUODENUM: Mild duodenal inflammation was found in the bulb and second portion of the duodenum. ADVERSE EVENTS: There were no complications. IMPRESSIONS: 1. There was LA Class A esophagitis noted; biopsy was performed 2. There was erythematous gastritis in the gastric antrum; biopsy was performed 3. Duodenal inflammation was found in the bulb and second portion of the duodenum 4. Retroflexed views revealed no abnormalities RECOMMENDATIONS: 1. Await biopsy results. Biopsy results will not be ready for 7-10 days. If you don't hear from us in two weeks, call our office for biopsy results. 2. Anti-reflux regimen 3. Continue PPI PATIENT CONDITION: stable DISPOSITION: Inpatient REPEAT EXAM: Return 1 year EGD pending biopsy results Tiki Thakur MD eSigned: Tiki Thakur MD 02/04/2017 9:45 AM cc: PATIENT NAME: Charline Burns MR#: [id number]
--- NOTE | 2017-02-04 09:48 | GIPROC ---
[facility] [address] [facility]. [facility], [address] COLONOSCOPY PROCEDURE REPORT EXAM DATE: 02/04/2017 PATIENT NAME: Charline Burns MR #: [id number] BIRTHDATE: 1975 ENDOSCOPIST: Tiki Thakur MD ORDER #: [id number] ORDER PACKER: Blake San and Delmy Ennis STATUS: inpatient INDICATIONS: The patient is a 41 yr old female here for a colonoscopy due to high risk patient with previously diagnosed Crohn's Disease PROCEDURE PERFORMED: Colonoscopy with biopsy MEDICATIONS: None and Per Anesthesia. PREP QUALITY: The Salvo Bowel Prep Score was Right colon 2, Mid colon 2, and Left colon 2. Total = 6. PREP TYPE:GoLytely ESTIMATED BLOOD LOSS: None CONSENT: The patient understands the risks and benefits of the procedure and understands that these risks include, but are not limited to: sedation, allergic reaction, infection, perforation and/or bleeding. Alternative means of evaluation and treatment include, among others: physical exam, x-rays, and/or surgical intervention. The patient elects to proceed with this endoscopic procedure. medical equipment was checked for proper function. Hand hygiene and appropriate measures for infection prevention was taken. After the risks, benefits and alternatives of the procedure were thoroughly explained, Informed consent was verified, confirmed and timeout was successfully executed by the treatment team. A digital exam revealed external hemorrhoids The Pentax EC-[id number] endoscope was introduced through the anus and advanced to the cecum, which was identified by both the appendix and ileocecal valve. The instrument was then slowly withdrawn as the colon was fully examined. COLON FINDINGS: A small patch of colitis was found in the sigmoid colon. The mucosa was erythematous. This is consistent with Crohn's disease. Multiple biopsies were performed using cold forceps. There was moderate diverticulosis noted in the sigmoid colon with associated tortuosity and muscular hypertrophy. Retroflexed views revealed internal hemorrhoids and Retroflexed views revealed medium internal hemorrhoids The scope was then completely withdrawn from the patient and the procedure terminated. PROCEDURE WITHDRAWAL TIME:7minutes ADVERSE EVENTS: There were no complications. IMPRESSIONS: 1. Small colitis was found in the sigmoid colon; The mucosa was erythematous; This is consistent with Crohn's disease.; multiple biopsies were performed using cold forceps 2. There was moderate diverticulosis noted in the sigmoid colon 3. Retroflexed views revealed internal hemorrhoids 4. Retroflexed views revealed medium internal hemorrhoids 5. Revealed external hemorrhoids RECOMMENDATIONS: 1. Await biopsy results. Biopsy results will not be ready for 7-10 days. If you don't hear from us in two weeks, call our office for results. 2. Benefiber 2 tsp daily 3. Continue surveillance 4. Yearly hemoccult 5. Yearly hemoccult 6. No seeds, nuts and popcorn in diet 7. Follow-up: GI Clinic 2 week(s) 8. Can dc home with gi fu RECALL: Return 3 years Colonoscopy, pending biopsy results Tiki Thakur MD eSigned: Tiki Thakur MD 02/04/2017 9:48 AM cc:
[2017-02-04] MEDS: MICONAZOLE NITRATE 200 MG VAG SUPP VAGINAL SCH (21:00)
[2017-02-04] MEDS: ZOLPIDEM TARTRATE 10 MG TAB PO SCH (23:17)
--- NOTE | 2017-02-04 23:55 | HHI.PR ---
Subjective Remarks patient seen this morning. Sitting up in bed. Appears comfortable. Denies any chest pain or shortness of breath. Still with nausea. Abdominal pain unchanged. Objective Vital Signs Date Time Temp Pulse Resp B/P Pulse Ox O2 Delivery O2 Flow Rate FiO2 02/04/17 22:00 57 02/04/17 20:15 98.0 68 18 142/82 97 02/04/17 16:00 97.7 60 19 128/57 99 02/04/17 12:00 97.9 62 20 140/44 98 02/04/17 09:55 73 18 101/51 95 02/04/17 09:51 76 18 106/53 98 02/04/17 09:43 98.6 75 18 120/65 98 02/04/17 08:51 97.4 96 20 130/58 96 02/04/17 08:00 96.1 91 20 174/81 96 02/04/17 03:49 97.8 60 17 106/55 94 02/04/17 02:15 58 02/04/17 00:09 97.9 76 18 141/66 97 I/O 02/03/17 02/03/17 02/03/17 02/04/17 02/04/17 02/04/17 07:00 15:00 23:00 07:00 15:00 23:00 Intake Total 1530 ml 1329 ml 1951 ml 741 ml 1790 ml 1005 ml Output Total 500 ml 1000 ml 300 ml Balance 1530 ml 829 ml 951 ml 741 ml 1490 ml 1005 ml Intake Oral 480 ml 480 ml 880 ml 350 ml 480 ml IV Total 1050 ml 849 ml 1071 ml 741 ml 740 ml 525 ml Other 700 ml Output Urine Total 500 ml 1000 ml 300 ml # Voids 3 5 3 # Bowel Movements 2 1 1 5 1 Result Diagram: 02/04/17 0419 02/04/17 0419 Objective Remarks GENERAL: patient sitting up in bed. Appears comfortable. Alert and oriented 3. SKIN: Warm and dry. HEAD: Normocephalic. EYES: No scleral icterus. No injection or drainage. NECK: Supple, trachea midline. No JVD CARDIOVASCULAR: Regular rate and rhythm without murmurs, gallops, or rubs. RESPIRATORY: Breath sounds equal bilaterally. No accessory muscle use. GASTROINTESTINAL: Abdomen soft, non-tender, nondistended. no rebound or guarding. MUSCULOSKELETAL: No cyanosis, or edema. BACK: Nontender without obvious deformity. No CVA tenderness. A/P Assessment and Plan //Sepsis: Temp 99.2, HR 130, WBC 21 on admission, Source-Colitis. S/p Blood Cultures and Zosyn IV in ER. Follow up cultures, continue IV Abx, IVF for hydration. CXR w/ no acute findings. = Improving area Continue IV antibiotics for colitis. // Colitis: CT Abd/Pelvis w/ mild left-sided colitis suspected, images reviewed by me. S/p IV Zosyn in ER, will continue w/ IV Abx, analgesics/ antiemetics as needed. = Appreciate GI assistance. Improving. Endoscopy planned. // Crohn's Disease: Follows w/ Dr. Campos as outpatient. -Gastroenterology following. Appreciate assistance. // Tobacco Abuse: Pt counselled on the need to quit. NicoDerm prn if needed. // DVT Prophylaxis: SCD/Teds. Discharge Planning endoscopy planned for tomorrow. Jama Heard MD February 04, 2017 23:55
[2017-02-05] VITALS (7 sets, daily range): BP systolic 121–145; BP diastolic 57–73; PULSE 65–84; RESP 18–20; TEMP 96.7–98; O2SAT 96–100
[2017-02-05] MEDS: metroNIDAZOLE 500 MG INJ 100 ML IV SCH ×4 (02:22→21:45)
[2017-02-05] MEDS: SODIUM CHLOR 0.9% 1000 ML INJ 1,000 ML IV SCH ×3 (02:22→16:08)
[2017-02-05] MEDS: ONDANSETRON HCL 4 MG/2 ML VIAL IVP PRN ×3 (02:26→16:09)
[2017-02-05] MEDS: MORPHINE SULFATE 4 MG/ML INJ IV PRN ×7 (02:27→23:37)
[2017-02-05 06:09] LABS: AUTOMATED NEUTROPHIL # 6.3 TH/MM3 (1.8-7.7); BASOPHIL % 0.4 % (0.0-2.0); EOSINOPHIL # 0.2 TH/MM3 (0-0.4); EOSINOPHIL % 1.6 % (0.0-4.0); HEMO FLAGS DIFF FINAL; LYMPH % 28.8 % (9.0-44.0); MEAN CELL VOLUME 84.9 FL (80.0-100.0); MEAN CORPUSCULAR HEMOGLOBIN 28.6 PG (27.0-34.0); MEAN CORPUSCULAR HGB CONC 33.7 % (32.0-36.0); MONO % 8.2 % (0.0-8.0); PLATELET COUNT 235 TH/MM3 (150-450); RED BLOOD COUNT 4.36 MIL/MM3 (4.00-5.30); RED CELL DISTRIBUTION WIDTH 13.5 % (11.6-17.2); WHITE BLOOD COUNT 10.4 TH/MM3 (4.0-11.0)
[2017-02-05 06:39] LABS: BICARBONATE 29.3 MEQ/L (21.0-32.0); POTASSIUM 4.2 MEQ/L (3.5-5.1)
[2017-02-05] MEDS: CIPROFLOXACIN 400 MG PREMIX 200 ML IV SCH ×2 (08:48→21:45)
[2017-02-05] MEDS: SODIUM CHLORIDE 0.9% FLUSH 10 ML FLUSH IV FLUSH SCH ×2 (08:48→21:00)
[2017-02-05] MEDS ORDERED: CIPR-9 PO (10:47)
[2017-02-05] MEDS ORDERED: METR500T10 PO (10:47)
[2017-02-05] MEDS ORDERED: HYDR-3516 PO (10:47)
[2017-02-05] MEDS ORDERED: MICO200V VAGINAL (10:54)
[2017-02-05] MEDS ORDERED: PANT40TA3 PO (10:54)
[2017-02-05] MEDS: MICONAZOLE NITRATE 200 MG VAG SUPP VAGINAL SCH (21:45)
[2017-02-05] MEDS: ZOLPIDEM TARTRATE 10 MG TAB PO SCH (21:45)
--- NOTE | 2017-02-05 23:20 | HHI.PR ---
Subjective Remarks patient seen this morning. patient still with nausea. Says she is not able tolerate enough by mouth intake, does not feel comfortable going home at this time. Denies any chest pain or shortness of breath Objective Vital Signs Date Time Temp Pulse Resp B/P Pulse Ox O2 Delivery O2 Flow Rate FiO2 02/05/17 21:44 18 02/05/17 20:00 97.6 67 20 145/69 100 02/05/17 16:00 98.0 65 19 131/61 98 02/05/17 12:00 97.4 73 19 121/57 96 02/05/17 08:00 97.7 84 19 137/73 96 02/05/17 04:15 96.7 69 18 139/70 97 02/05/17 00:07 97.7 68 18 133/60 96 I/O 02/04/17 02/04/17 02/04/17 02/05/17 02/05/17 02/05/17 07:00 15:00 23:00 07:00 15:00 23:00 Intake Total 741 ml 1790 ml 1005 ml 1451 ml 300 ml 1040 ml Output Total 300 ml Balance 741 ml 1490 ml 1005 ml 1451 ml 300 ml 1040 ml Intake Oral 350 ml 480 ml 480 ml 300 ml 240 ml IV Total 741 ml 740 ml 525 ml 971 ml 800 ml Other 700 ml Output Urine Total 300 ml # Voids 5 3 2 3 2 # Bowel Movements 5 1 1 1 Result Diagram: 02/05/17 0538 02/05/17 0538 Objective Remarks GENERAL: patient sitting up in bed. Appears comfortable. Alert and oriented 3.exam unchanged. SKIN: Warm and dry. HEAD: Normocephalic. EYES: No scleral icterus. No injection or drainage. NECK: Supple, trachea midline. No JVD CARDIOVASCULAR: Regular rate and rhythm without murmurs, gallops, or rubs. RESPIRATORY: Breath sounds equal bilaterally. No accessory muscle use. GASTROINTESTINAL: Abdomen soft, non-tender, nondistended. no rebound or guarding. MUSCULOSKELETAL: No cyanosis, or edema. BACK: Nontender without obvious deformity. No CVA tenderness. A/P Assessment and Plan patient says she is still not tolerating enough by mouth intake. We'll continue to monitor. Zofran when necessary. //Sepsis: Temp 99.2, HR 130, WBC 21 on admission, Source-Colitis. S/p Blood Cultures and Zosyn IV in ER. Follow up cultures, continue IV Abx, IVF for hydration. CXR w/ no acute findings. = Improving. Continue IV antibiotics for colitis. // Colitis: CT Abd/Pelvis w/ mild left-sided colitis suspected, images reviewed by me. S/p IV Zosyn in ER, will continue w/ IV Abx, analgesics/ antiemetics as needed. - Appreciate GI assistance. Improving. -s/p endoscopy 02/04 - pending pathology // Crohn's Disease: Follows w/ Dr. Campos as outpatient. -Gastroenterology following. Appreciate assistance. biopsies with pathology pending. // Tobacco Abuse: Pt counselled on the need to quit. NicoDerm prn if needed. // DVT Prophylaxis: SCD/Teds. Discharge Planning cont to monitor for improvement. still with poor po intake Jama Heard MD February 05, 2017 23:20
[2017-02-06] VITALS: BP 142/80; PULSE 62; RESP 20; TEMP 97.8; O2SAT 98
[2017-02-06] MEDS: ONDANSETRON HCL 4 MG/2 ML VIAL IVP PRN ×3 (03:50→21:38)
[2017-02-06] MEDS: MORPHINE SULFATE 4 MG/ML INJ IV PRN ×5 (03:51→21:37)
[2017-02-06 04:00] VITALS: BP 138/72; PULSE 79; RESP 20; TEMP 98.1; O2SAT 99
[2017-02-06 06:22] LABS: AUTOMATED NEUTROPHIL # 7.2 TH/MM3 (1.8-7.7); BASOPHIL % 0.3 % (0.0-2.0); EOSINOPHIL # 0.2 TH/MM3 (0-0.4); EOSINOPHIL % 1.8 % (0.0-4.0); HEMATOCRIT 39.6 % (35.0-46.0); HEMO FLAGS DIFF FINAL; LYMPH % 25.3 % (9.0-44.0); LYMPHOCYTE # 2.8 TH/MM3 (1.0-4.8); MEAN CELL VOLUME 84.9 FL (80.0-100.0); MEAN CORPUSCULAR HEMOGLOBIN 28.4 PG (27.0-34.0); MEAN CORPUSCULAR HGB CONC 33.4 % (32.0-36.0); MONO % 7.8 % (0.0-8.0); NEUT % 64.8 % (16.0-70.0); PLATELET COUNT 272 TH/MM3 (150-450); RED BLOOD COUNT 4.67 MIL/MM3 (4.00-5.30); WHITE BLOOD COUNT 11.1 TH/MM3 (4.0-11.0)
[2017-02-06 06:41] LABS: BICARBONATE 27.8 MEQ/L (21.0-32.0); MAGNESIUM 1.8 MG/DL (1.5-2.5)
[2017-02-06] MEDS: metroNIDAZOLE 500 MG INJ 100 ML IV SCH ×2 (07:57→16:33)
[2017-02-06] MEDS: SODIUM CHLORIDE 0.9% FLUSH 10 ML FLUSH IV FLUSH SCH ×2 (07:58→21:00)
[2017-02-06] MEDS: CIPROFLOXACIN 400 MG PREMIX 200 ML IV SCH ×2 (07:58→21:37)
[2017-02-06 08:00] VITALS: BP 113/62; PULSE 75; RESP 24; TEMP 98.4; O2SAT 96
[2017-02-06 12:00] VITALS: BP 131/77; PULSE 74; RESP 24; TEMP 97.9; O2SAT 100
[2017-02-06] MEDS: SODIUM CHLOR 0.9% 1000 ML INJ 1,000 ML IV SCH (13:34)
[2017-02-06 16:00] VITALS: BP 105/77; PULSE 73; RESP 20; TEMP 97.7; O2SAT 98
[2017-02-06] MEDS: DRONABINOL 5 MG CAP PO SCH (16:34)
[2017-02-06 20:00] VITALS: BP 141/83; PULSE 72; RESP 20; TEMP 97.6; O2SAT 98
[2017-02-06] MEDS: ZOLPIDEM TARTRATE 10 MG TAB PO SCH (21:38)
--- NOTE | 2017-02-06 23:54 | HHI.PR ---
Subjective Remarks patient seen earlier this morning. She says that nausea continues, unable to eat. So with mucousy bowel movements. She states that she smokes marijuana several times per week. I discussed the possibility of marijuana hyperemesis syndrome Objective Vital Signs Date Time Temp Pulse Resp B/P Pulse Ox O2 Delivery O2 Flow Rate FiO2 02/06/17 23:08 18 02/06/17 20:00 97.6 72 20 141/83 98 02/06/17 16:00 97.7 73 20 105/77 98 02/06/17 12:00 97.9 74 24 131/77 100 02/06/17 08:00 98.4 75 24 113/62 96 02/06/17 04:00 98.1 79 20 138/72 99 02/06/17 00:00 97.8 62 20 142/80 98 I/O 02/05/17 02/05/17 02/05/17 02/06/17 02/06/17 02/06/17 07:00 15:00 23:00 07:00 15:00 23:00 Intake Total 1451 ml 300 ml 2640 ml 622 ml 930 ml 480 ml Output Total 650 ml Balance 1451 ml 300 ml 2640 ml 622 ml 930 ml -170 ml Intake Oral 480 ml 300 ml 240 ml 0 ml 240 ml 480 ml IV Total 971 ml 2400 ml 622 ml 690 ml Output Urine Total 650 ml # Voids 2 3 2 4 3 # Bowel Movements 1 1 0 Result Diagram: 02/06/17 0446 02/06/17 0446 Objective Remarks GENERAL: patient sitting up in bed. Appears uncomfortable. Alert and oriented 3. SKIN: Warm and dry. HEAD: Normocephalic. EYES: No scleral icterus. No injection or drainage. NECK: Supple, trachea midline. No JVD CARDIOVASCULAR: Regular rate and rhythm without murmurs, gallops, or rubs. RESPIRATORY: Breath sounds equal bilaterally. No accessory muscle use. GASTROINTESTINAL: Abdomen soft, non-tender, nondistended. no rebound or guarding. MUSCULOSKELETAL: No cyanosis, or edema. BACK: Nontender without obvious deformity. No CVA tenderness. A/P Assessment and Plan patient says she is still not tolerating enough by mouth intake. We'll continue to monitor. Zofran when necessary. //Sepsis: Temp 99.2, HR 130, WBC 21 on admission, Source-Colitis. S/p Blood Cultures and Zosyn IV in ER. Follow up cultures, continue IV Abx, IVF for hydration. CXR w/ no acute findings. = Improving. Continue IV antibiotics for colitis. //nauea/vomiting. will try marinol // Colitis: CT Abd/Pelvis w/ mild left-sided colitis suspected, images reviewed by me. S/p IV Zosyn in ER, will continue w/ IV Abx, analgesics/ antiemetics as needed. - Appreciate GI assistance. Improving. -s/p endoscopy 02/04 - pending pathology // Crohn's Disease: Follows w/ Dr. Campos as outpatient. -Gastroenterology following. Appreciate assistance. biopsies with pathology pending. // Tobacco Abuse: Pt counselled on the need to quit. NicoDerm prn if needed. // DVT Prophylaxis: SCD/Teds. Discharge Planning still with n/v. cont on iv abx. Jama Heard MD February 06, 2017 23:54
[2017-02-07] VITALS (7 sets, daily range): BP systolic 120–150; BP diastolic 67–80; PULSE 66–89; RESP 18–20; TEMP 97–98; O2SAT 97–98
[2017-02-07] MEDS: metroNIDAZOLE 500 MG INJ 100 ML IV SCH ×3 (02:19→17:22)
[2017-02-07] MEDS: MORPHINE SULFATE 4 MG/ML INJ IV PRN ×3 (02:19→10:46)
[2017-02-07 05:33] LABS: AUTOMATED NEUTROPHIL # 8.8 TH/MM3 (1.8-7.7); BASOPHIL % 0.2 % (0.0-2.0); EOSINOPHIL # 0.1 TH/MM3 (0-0.4); EOSINOPHIL % 1.1 % (0.0-4.0); HEMATOCRIT 40.7 % (35.0-46.0); HEMO FLAGS DIFF FINAL; LYMPH % 21.3 % (9.0-44.0); LYMPHOCYTE # 2.7 TH/MM3 (1.0-4.8); MEAN CELL VOLUME 84.4 FL (80.0-100.0); MEAN CORPUSCULAR HEMOGLOBIN 28.1 PG (27.0-34.0); MEAN CORPUSCULAR HGB CONC 33.3 % (32.0-36.0); NEUT % 70.4 % (16.0-70.0); PLATELET COUNT 273 TH/MM3 (150-450); RED BLOOD COUNT 4.83 MIL/MM3 (4.00-5.30); RED CELL DISTRIBUTION WIDTH 13.3 % (11.6-17.2); WHITE BLOOD COUNT 12.5 TH/MM3 (4.0-11.0)
[2017-02-07] MEDS: SODIUM CHLOR 0.9% 1000 ML INJ 1,000 ML IV SCH (05:38)
[2017-02-07 05:59] LABS: BICARBONATE 27.3 MEQ/L (21.0-32.0); MAGNESIUM 1.8 MG/DL (1.5-2.5); POTASSIUM 3.6 MEQ/L (3.5-5.1)
[2017-02-07] MEDS: ONDANSETRON HCL 4 MG/2 ML VIAL IVP PRN ×2 (06:34→17:27)
[2017-02-07] MEDS: SODIUM CHLORIDE 0.9% FLUSH 10 ML FLUSH IV FLUSH SCH ×2 (08:44→20:32)
[2017-02-07] MEDS: CIPROFLOXACIN 400 MG PREMIX 200 ML IV SCH ×2 (08:44→20:32)
[2017-02-07] MEDS: DRONABINOL 5 MG CAP PO SCH ×2 (11:33→16:07)
--- NOTE | 2017-02-07 11:56 | HHI.PR ---
Subjective Remarks Follow up nausea. Patient seen and examined today. Patient states the nausea is a little better, she is able to eat when she wants to but has no appetite. She states she is not going to force herself to eat if she does not feel like it. She denies any chest pain or sob. Patient was encouraged to get out of bed and move around and not stay in bed in the dark. Objective Vitals Vital Signs Date Time Temp Pulse Resp B/P Pulse Ox O2 Delivery O2 Flow Rate FiO2 02/07/17 08:00 97.3 86 20 143/67 97 02/07/17 06:44 16 02/07/17 04:00 97.8 84 20 120/78 98 02/07/17 00:00 98.0 70 20 128/80 97 02/06/17 20:00 97.6 72 20 141/83 98 02/06/17 16:00 97.7 73 20 105/77 98 02/06/17 12:00 97.9 74 24 131/77 100 I/O 02/06/17 02/06/17 02/06/17 02/07/17 02/07/17 02/07/17 07:00 15:00 23:00 07:00 15:00 23:00 Intake Total 622 ml 930 ml 480 ml 859 ml Output Total 650 ml Balance 622 ml 930 ml -170 ml 859 ml Intake Oral 0 ml 240 ml 480 ml 240 ml IV Total 622 ml 690 ml 619 ml Output Urine Total 650 ml # Voids 4 3 4 # Bowel Movements 0 0 Result Diagram: 02/07/17 0300 02/07/17 0500 Imaging Last Impressions Abdomen/Pelvis CT 02/01/17 2242 Signed Impressions: Service Date/Time: Wednesday, February 01, 2017 23:31 - CONCLUSION: 1. Mild left-sided colitis suspected. No high-grade inflammatory changes. No associated complication demonstrated. 2. Noncontrast CT appearance of the small bowel within normal limits. Luis Leal MD Chest X-Ray 02/01/17 0000 Signed Impressions: Service Date/Time: Thursday, February 02, 2017 00:21 - CONCLUSION: No evidence of acute cardiopulmonary disease. Luis Leal MD Objective Remarks GENERAL: patient sitting up in bed. Appears uncomfortable. Alert and oriented 3. SKIN: Warm and dry. HEAD: Normocephalic. EYES: No scleral icterus. No injection or drainage. NECK: Supple, trachea midline. No JVD CARDIOVASCULAR: Regular rate and rhythm without murmurs, gallops, or rubs. RESPIRATORY: Breath sounds equal bilaterally. No accessory muscle use. GASTROINTESTINAL: Abdomen soft, non-tender, nondistended. no rebound or guarding. MUSCULOSKELETAL: No cyanosis, or edema. Procedures EGD 02/04 There was LA Class A esophagitis noted; biopsy was performed, There was erythematous gastritis in the gastric antrum; biopsy was performed Duodenal inflammation was found in the bulb and second portion of the duodenum, Retroflexed views revealed no abnormalities Medications and IVs Current Medications Medications (Trade) Dose Ordered Sig/Petey Route Start Time Stop Time Status Last Admin Ciprofloxacin/ Dextrose 200 ml @ 200 mls/hr Q12H IV 02/02/17 09:00 02/07/17 08:44 Metronidazole 100 ml @ 100 mls/hr Q8H IV 02/02/17 02:00 02/07/17 10:40 (NS 1000 ml Inj) 1,000 ml @ 65 mls/hr [id number] IV 02/02/17 01:33 02/07/17 05:38 (NS Flush) 2 ml UNSCH PRN IV FLUSH 02/02/17 01:45 (NS Flush) 2 ml BID IV FLUSH 02/02/17 09:00 02/07/17 08:44 (Zofran Inj) 4 mg Q6H PRN IVP 02/02/17 01:45 02/07/17 06:34 (Dulcolax Supp) 10 mg DAILY PRN RECTAL 02/02/17 01:45 (Tylenol) 650 mg Q6H PRN PO 02/02/17 01:45 02/04/17 20:17 ([place] 5-325 Mg) 1 tab Q4H PRN PO 02/02/17 01:45 02/03/17 21:21 (Morphine Inj) 2 mg Q3H PRN IV 02/02/17 01:45 02/07/17 10:46 (Ambien) 10 mg HS PO 02/02/17 21:00 02/06/17 21:38 (Catapres) 0.1 mg Q6H PRN PO 02/03/17 20:45 02/03/17 21:21 (Marinol) 5 mg BID@11,16 PO 02/06/17 16:00 02/07/17 11:33 A/P Problem List: (1) Sepsis ICD Code: A41.9 Status: Acute (2) Colitis ICD Code: K52.9 Status: Acute (3) Crohn's disease ICD Code: K50.90 Status: Acute (4) Tobacco abuse ICD Code: Z72.0 Status: Acute Assessment and Plan //Sepsis: Temp 99.2, HR 130, WBC 21 on admission, Source-Colitis. S/p Blood Cultures and Zosyn IV in ER. Follow up cultures, continue IV Abx, IVF for hydration. CXR w/ no acute findings. = Improved Continue IV antibiotics for colitis. // Colitis: Improving. Endoscopy showed duodenal inflammation, pathology negative. Pt says she is still not having an appetite. We'll continue to monitor. Continue Zofran when necessary. add Marinol for nausea. D/C morphine and IV fluids as they may contribute to decreased appetite. // Crohn's Disease: Follows w/ Dr. Campos as outpatient. -Gastroenterology following. GI recommends Anti-reflux regimen, Continue PPI, Follow up EGD in 1 year // Tobacco Abuse: Pt counselled on the need to quit. NicoDerm prn if needed. // DVT Prophylaxis: SCD/Teds, ambulation Written by LENA Strickland acting as scribe for [[email or web address]] on 02/07/17 at 11 :00. Discharge Planning Most likely Tomorrow Attending Statement This note was transcribed by scribe [LENA Strickland]. I, Dr. Jama Heard personally performed the history, physical exam, and medical decision making; and confirmed the accuracy of the information in the transcribed note. Authenticated by Dr. Jama Heard on 02/08/17 at 08:25. Problem Qualifiers (1) Sepsis: Qualified Code: A41.9 - Sepsis, due to unspecified organism Jessica Alvarado February 07, 2017 11:56 Jama Heard MD February 08, 2017 08:25
[2017-02-07] MEDS: ACETAMINOPHEN/HYDROcodone 325 MG/5 MG TAB PO PRN ×3 (14:40→22:51)
[2017-02-07] MEDS: ZOLPIDEM TARTRATE 10 MG TAB PO SCH (20:32)
[2017-02-08 00:30] VITALS: BP 143/90; PULSE 112; RESP 18; TEMP 96.8; O2SAT 97
[2017-02-08] MEDS: ACETAMINOPHEN/HYDROcodone 325 MG/5 MG TAB PO PRN ×2 (02:39→06:35)
[2017-02-08] MEDS: metroNIDAZOLE 500 MG INJ 100 ML IV SCH (02:39)
[2017-02-08] MEDS: ONDANSETRON HCL 4 MG/2 ML VIAL IVP PRN (03:00)
[2017-02-08 04:21] VITALS: BP 118/57; PULSE 70; RESP 18; TEMP 98.9; O2SAT 97
[2017-02-08 08:00] VITALS: BP 131/64; PULSE 79; RESP 19; TEMP 96.9; O2SAT 98
[2017-02-08] MEDS: SODIUM CHLORIDE 0.9% FLUSH 10 ML FLUSH IV FLUSH SCH (09:00)
[2017-02-08] MEDS: CIPROFLOXACIN 400 MG PREMIX 200 ML IV SCH (09:25)
[2017-02-08] MEDS ORDERED: DRON5CAP PO (10:41)
[2017-02-08] MEDS ORDERED: HYDR-3516 PO (10:41)
[2017-02-08] MEDS ORDERED: ONDA4TAB7 SL (10:41)
[2017-02-08 12:00] VITALS: BP 137/64; PULSE 83; RESP 17; TEMP 97.7; O2SAT 95
[2017-02-08] MEDS: DRONABINOL 5 MG CAP PO SCH (12:28)
--- NOTE | 2017-02-13 10:37 | HHI.DS ---
Discharge Summary Admission Date Feb 02, 2017 at 01:25 Discharge Date: February 08, 2017 Admitting Diagnosis colitis (1) Sepsis ICD Code: A41.9 (2) Colitis ICD Code: K52.9 (3) Crohn's disease ICD Code: K50.90 (4) Tobacco abuse ICD Code: Z72.0 Procedures EGD 02/04 There was LA Class A esophagitis noted; biopsy was performed, There was erythematous gastritis in the gastric antrum; biopsy was performed Duodenal inflammation was found in the bulb and second portion of the duodenum, Retroflexed views revealed no abnormalities Brief History - From Admission This is a 41-year-old female with a PMH of Crohn's Disease, Cervical CA s/p Hysterectomy, COPD and Diet Controlled DM who presented to the ER with complaints of abdominal pain, nausea, vomiting and diarrhea x2-3 days. Denies fever, chills, SOB or sick contacts. On arrival, BP 150/93, HR 1:30, O2 sat 100 % on RA, Temp 99.2. WBC 21.5. Chemistry essentially unremarkable except for GFR of 86. UA negative. CXR with no acute findings. CT Abd/Pelvis w/ mild left-sided colitis. S/p Zosyn in ER. Follows w/ Dr. Campos as outpatient for h/ o Crohn's. Imaging Last Impressions Abdomen/Pelvis CT 02/01/17 2242 Signed Impressions: Service Date/Time: Wednesday, February 01, 2017 23:31 - CONCLUSION: 1. Mild left-sided colitis suspected. No high-grade inflammatory changes. No associated complication demonstrated. 2. Noncontrast CT appearance of the small bowel within normal limits. Luis Leal MD Chest X-Ray 02/01/17 0000 Signed Impressions: Service Date/Time: Thursday, February 02, 2017 00:21 - CONCLUSION: No evidence of acute cardiopulmonary disease. Luis Leal MD PE at Discharge GENERAL: patient sitting up in bed. Appears comfortable. Alert and oriented 3. SKIN: Warm and dry. HEAD: Normocephalic. EYES: No scleral icterus. No injection or drainage. NECK: Supple, trachea midline. No JVD CARDIOVASCULAR: Regular rate and rhythm without murmurs, gallops, or rubs. RESPIRATORY: Breath sounds equal bilaterally. No accessory muscle use. GASTROINTESTINAL: Abdomen soft, non-tender, nondistended. no rebound or guarding. MUSCULOSKELETAL: No cyanosis, or edema. Pt update on day of discharge pt feeling better. n/v improved. abd pain improved.feels like going home. Hospital Course imaging showed sigmoid colitis. Patient was treated with IV Zofran, IV antibiotics. Gastroenterology was consult it. Patient underwent endoscopy with biopsy. Biopsy returned normal. Please see report. Patient's nausea and vomiting improved with Marinol. She'll need a follow-up with gastroenterology as outpatient. Patient conveys understanding. For problem-based summary from most recent progress note, please see below. //Sepsis: Temp 99.2, HR 130, WBC 21 on admission, Source-Colitis. S/p Blood Cultures and Zosyn IV in ER. Follow up cultures, continue IV Abx, IVF for hydration. CXR w/ no acute findings. = Improving. Continue IV antibiotics for colitis. //nausea/vomiting. improved with marinol. // Colitis: CT Abd/Pelvis w/ mild left-sided colitis suspected, images reviewed by me. S/p IV Zosyn in ER, will continue w/ IV Abx, analgesics/ antiemetics as needed. - Appreciate GI assistance. Improving. -s/p endoscopy 02/04 - pending pathology // Crohn's Disease: Follows w/ Dr. Campos as outpatient. -Gastroenterology following. Appreciate assistance. biopsies with pathology pending. // Tobacco Abuse: Pt counselled on the need to quit. NicoDerm prn if needed. // DVT Prophylaxis: SCD/Teds. Pt Condition on Discharge: Good Discharge Disposition: Discharge Home Discharge Time: <= 30 minutes Discharge Instructions DIET: Follow Instructions for: Heart Healthy Diet Activities you can perform: Regular-No Restrictions Follow up Referrals: Gastroenterology with Donavan Quiñones MD PCP Follow-up with Maty Costa MD New Orders: CBC WITH DIFF - 2-3 Days COMP MET PROF (CMP) - 2-3 Days New Medications: Ciprofloxacin (Cipro) 500 Mg Tab 500 MG PO BID Infection Days 11 Ref 0 TAB Metronidazole (Metronidazole) 500 Mg Tab 500 MG PO TID Infection Days 11 Ref 0 TAB Ondansetron Odt (Ondansetron Odt) 4 Mg Tab 4 MG SL Q6HR PRN Nausea/Vomiting Days 30 Ref 0 TAB Pantoprazole (Pantoprazole) 40 Mg Tab 40 MG PO DAILY Reflux #30 Ref 0 TAB Dronabinol (Dronabinol) 5 Mg Cap 5 MG PO BID@11,16 nausea/appetite #14 CAP Hydrocodone-Acetaminophen (Hydrocodone-Acetaminophen) 5-325 mg Tab 1 TAB PO Q4H PRN PAIN SCALE 1 TO 10 #18 TAB Continued Medications: ([estrogen]) 40 MG IM MONTHLY Discontinued Medications: Morphine IR (Morphine IR) 15 Mg Tab 15 MG PO TID PRN PAIN Ref 0 TAB Jama Heard MD February 13, 2017 10:37
== END 2017-02-08 12:48 | disposition home or self-care (01) | DRG 872 ==
LOC: NEPE 21:25 → NEDA 02-02 01:25 → OBSVTOIN 02-02 01:25 → N07B 02-02 03:40
PROVIDERS: ADMIT Internal Medicine; ATTEND Internal Medicine
PROC: 0DB68ZX Excision of Stomach, Via Natural or Artificial Opening Endoscopic, Diagnostic (ICD-10-PCS; 2017-02-04)
PROC: 0DBN8ZX Excision of Sigmoid Colon, Via Natural or Artificial Opening Endoscopic, Diagnostic (ICD-10-PCS; principal; 2017-02-04 08:53)
PROC: 0DB58ZX Excision of Esophagus, Via Natural or Artificial Opening Endoscopic, Diagnostic (ICD-10-PCS; 2017-02-04 08:53)
DX: A41.9 Sepsis, unspecified organism (principal); K50.90 Crohn's disease, unspecified, without complications; I10 Essential (primary) hypertension; F17.210 Nicotine dependence, cigarettes, uncomplicated; K21.0 Gastro-esophageal reflux disease with esophagitis; J44.9 Chronic obstructive pulmonary disease, unspecified; E11.9 Type 2 diabetes mellitus without complications; F12.90 Cannabis use, unspecified, uncomplicated; K29.70 Gastritis, unspecified, without bleeding; K57.30 Diverticulosis of large intestine without perforation or abscess without bleeding; K64.8 Other hemorrhoids; K64.4 Residual hemorrhoidal skin tags; Z86.14 Personal history of Methicillin resistant Staphylococcus aureus infection; Z90.710 Acquired absence of both cervix and uterus; Z85.41 Personal history of malignant neoplasm of cervix uteri
CPT/HCPCS: 71010; 74176; 76937; 80048; 80053; 80069; 81001; 83605; 83690; 83735; 85025; 87040; 87493; 88305; 88312; 93005; 96374; 96375; 96376; J0744; J2270; J2405; J2543; J7030

== ENCOUNTER 2018-01-28 20:57 | Emergency (ER) | payer OTHER ==
[~2018-01-28] VITALS: Ht 154.9 cm; Wt 75.0 kg
[~2018-01-28 20:57] MED LIST changes: -BACT800T5 PO; -CEPH500C3 PO; +CIPR-9 PO; +DRON5CAP PO; +HYDR-3516 PO; -LASI20TA PO; +METR1TAB76 PO; -MORP1INJ45 PO; -OMEP20TA39 PO; +ONDA4TAB7 SL; +PANT40TA3 PO; -ZOLP10TA3 PO
[2018-01-28 21:36] VITALS: BP 173/78; PULSE 110; RESP 16; TEMP 99; O2SAT 98
[2018-01-28 22:05] VITALS: BP 139/63; PULSE 87; RESP 18; O2SAT 99
--- NOTE | 2018-01-28 22:18 | PD ---
HPI Chief Complaint: Flank/Kidney Pain Time Seen by Provider: 22:16 Travel History International Travel<30 days: No Contact w/Intl Traveler<30days: No Traveled to known affect area: No History of Present Illness HPI 42-year-old female presents emergency department for evaluation of left flank pain. This started last evening. She thought it was a muscle spasm but has now landed around to her left lower quadrant. Patient's urine has been darker and more frequent. Denies any hematuria. Denies any saddle paresthesia, loss of bowel or bladder, lower extremity weakness. Patient denies any injury. Pain is a constant dull, intermittently sharp pain. Mild nausea without vomiting. No fever chills. No other symptoms to report. PFSH Past Medical History Arthritis: Yes Asthma: No Autoimmune Disease: No Blood Disorders: No Anxiety: No Depression: No Heart Rhythm Problems: Yes (PALPITATIONS AND ERADIC HR) Cancer: Yes (CERVICAL CA WITH HYSTERECTOMY) Cardiovascular Problems: Yes (PALP, IRREG HEAR RATE) High Cholesterol: No Chemotherapy: No Chest Pain: No Congestive Heart Failure: No COPD: Yes (EMPHYSEMA) Cerebrovascular Accident: No Diabetes: Yes (diet controlled) Patient Takes Glucophage: No Diminished Hearing: No Endocrine: No Gastrointestinal Disorders: Yes GERD: Yes Glaucoma: No Genitourinary: Yes Headaches: No Hepatitis: No Hiatal Hernia: No Hypertension: Yes Immune Disorder: No Implanted Vascular Access Dvce: Yes Kidney Stones: No Musculoskeletal: Yes (BACK FUSION IN SEP) Neurologic: No Psychiatric: No Reproductive: Yes (BREAST BX IN DECEMBER, CERVICAL CA) Respiratory: Yes (COPD) Integumentary: Yes (MRSA IN L BUTTOCK 09/11) Immunizations Current: Yes Migraines: Yes Myocardial Infarction: No Radiation Therapy: No Renal Failure: No Seizures: No Sickle Cell Disease: No Sleep Apnea: No Thyroid Disease: No Ulcer: No Tetanus Vaccination: < 5 Years Influenza Vaccination: No ?: Not Menopausal: Yes : 3 Para: 2 Miscarriage: 1 Past Surgical History Abdominal Surgery: Yes (GALLBLADER SX) AICD: No Body Medical Devices: RODS SCREWS IN BACK, MORPHINE SULFATE PUMP 2014 Cardiac Surgery: No Cholecystectomy: Yes Ear Surgery: No Endocrine Surgery: No Eye Surgery: No Genitourinary Surgery: Yes (URETHRA/ SX REPAIR) Gynecologic Surgery: Yes (URETHRA , HYSTERECTOMY) Hysterectomy: Yes Joint Replacement: No Neurologic Surgery: No Oral Surgery: No Pacemaker: No Thoracic Surgery: No Tonsillectomy: Yes Other Surgery: Yes (SPINAL FUSION) Social History Alcohol Use: No Tobacco Use: Yes (12/08 PPD) Substance Use: Yes (reg) Allergies-Medications (Allergen,Severity, Reaction): Coded Allergies: aspirin (Unverified Allergy, Intermediate, Nausea/Vomiting, 01/28/18) diatrizoate meglumine (Unverified Adverse Reaction, Intermediate, VOMITING , 01/28/18) diclofenac (Unverified Adverse Reaction, Intermediate, Nausea/Vomiting, ) etodolac (Unverified Adverse Reaction, Intermediate, Nausea/Vomiting, 01/28) flurbiprofen (Unverified Adverse Reaction, Intermediate, Nausea/Vomiting, 01/28/18) gadobenic acid (Unverified Adverse Reaction, Intermediate, VOMITING, ) gadodiamide (Unverified Adverse Reaction, Intermediate, VOMITING, 01/28/18) gadoteridol (Unverified Adverse Reaction, Intermediate, VOMITING, 01/28/18) ibuprofen (Unverified Adverse Reaction, Intermediate, Nausea/Vomiting, ) indomethacin (Unverified Adverse Reaction, Intermediate, Nausea/Vomiting, 01/28/18) iodixanol (Unverified Adverse Reaction, Intermediate, VOMITING, 01/28/18) iohexol (Unverified Adverse Reaction, Intermediate, VOMITING, 01/28/18) ketoprofen (Unverified Adverse Reaction, Intermediate, Nausea/Vomiting, ) ketorolac (Unverified Adverse Reaction, Intermediate, Nausea/Vomiting, ) naproxen (Unverified Adverse Reaction, Intermediate, Nausea/Vomiting, 01/28) oxaprozin (Unverified Adverse Reaction, Intermediate, Nausea/Vomiting, ) *MDRO Multi-Drug Resistant Organism (Verified Adverse Reaction, Unknown, ) MRSA Reported Meds & Prescriptions Reported Meds & Active Scripts Active Ultram (Tramadol HCl) 50 Mg Tab 50 Mg PO Q8H PRN Ondansetron Odt 4 Mg Tab 4 Mg SL Q6HR PRN 30 Days Dronabinol 5 Mg Cap 5 Mg PO BID@11,16 Hydrocodone-Acetaminophen 5-325 mg Tab 1 Tab PO Q4H PRN Pantoprazole (Pantoprazole Sodium) 40 Mg Tab 40 Mg PO DAILY Metronidazole 500 Mg Tab 500 Mg PO TID 11 Days Cipro (Ciprofloxacin HCl) 500 Mg Tab 500 Mg PO BID 11 Days Reported [estrogen] 40 Mg IM MONTHLY Review of Systems Except as stated in HPI: all other systems reviewed are Neg Physical Exam Narrative GENERAL: Well-nourished female patient in no acute distress SKIN: Focused skin assessment warm/dry. HEAD: Atraumatic. Normocephalic. EYES: Pupils equal and round. No scleral icterus. No injection or drainage. ENT: No nasal bleeding or discharge. Mucous membranes pink and moist. NECK: Trachea midline. No JVD. CARDIOVASCULAR: Regular rate and rhythm. No murmur appreciated. RESPIRATORY: No accessory muscle use. Clear to auscultation. Breath sounds equal bilaterally. GASTROINTESTINAL: Abdomen soft, non-tender, nondistended. Hepatic and splenic margins not palpable. MUSCULOSKELETAL: No obvious deformities. No clubbing. No cyanosis. No edema. Left CVA tenderness NEUROLOGICAL: Awake and alert. No obvious cranial nerve deficits. Motor grossly within normal limits. Normal speech. PSYCHIATRIC: Appropriate mood and affect; insight and judgment normal. Data Data Last Documented VS Vital Signs Date Time Temp Pulse Resp B/P (MAP) Pulse Ox O2 Delivery O2 Flow Rate FiO2 01/29/18 00:12 01/28/18 23:00 18 99 Room Air 01/28/18 22:05 87 01/28/18 21:36 99.0 Orders Orders Basic Metabolic Panel (Bmp) (01/28/18 22:34) Complete Blood Count With Diff (01/28/18 22:34) Urinalysis - C+S If Indicated (01/28/18 22:34) Ct Abd/Pel W/O Iv Contrast (01/28/18 22:34) Iv Access Insert/Monitor (01/28/18 22:34) Ecg Monitoring (01/28/18 22:34) Oximetry (01/28/18 22:34) Sodium Chlor 0.9% 1000 Ml Inj (Ns 1000 M (01/28/18 22:34) Sodium Chloride 0.9% Flush (Ns Flush) (01/28/18 22:45) Ketorolac Inj (Toradol Inj) (01/28/18 22:45) Ed Discharge Order (01/28/18 23:53) Labs Laboratory Tests Test 01/28/18 22:50 White Blood Count 15.0 TH/MM3 Red Blood Count 4.91 MIL/MM3 Hemoglobin 14.2 GM/DL Hematocrit 41.4 % Mean Corpuscular Volume 84.5 FL Mean Corpuscular Hemoglobin 29.0 PG Mean Corpuscular Hemoglobin Concent 34.3 % Red Cell Distribution Width 13.2 % Platelet Count 286 TH/MM3 Mean Platelet Volume 7.6 FL Neutrophils (%) (Auto) 73.1 % Lymphocytes (%) (Auto) 19.4 % Monocytes (%) (Auto) 6.3 % Eosinophils (%) (Auto) 0.8 % Basophils (%) (Auto) 0.4 % Neutrophils # (Auto) 11.0 TH/MM3 Lymphocytes # (Auto) 2.9 TH/MM3 Monocytes # (Auto) 0.9 TH/MM3 Eosinophils # (Auto) 0.1 TH/MM3 Basophils # (Auto) 0.1 TH/MM3 CBC Comment DIFF FINAL Differential Comment Urine Color YELLOW Urine Turbidity CLEAR Urine pH 7.5 Urine Specific [place] 1.013 Urine Protein NEG mg/dL Urine Glucose (UA) NEG mg/dL Urine Ketones NEG mg/dL Urine Occult Blood NEG Urine Nitrite NEG Urine Bilirubin NEG Urine Urobilinogen LESS THAN 2.0 MG/DL Urine Leukocyte Esterase NEG Urine RBC 1 /hpf Urine WBC LESS THAN 1 /hpf Urine Squamous Epithelial Cells 5 /hpf Urine Bacteria RARE /hpf Microscopic Urinalysis Comment CULT NOT INDICATED Blood Urea Nitrogen 6 MG/DL Creatinine 0.69 MG/DL Random Glucose 98 MG/DL Calcium Level 8.8 MG/DL Sodium Level 139 MEQ/L Potassium Level 3.9 MEQ/L Chloride Level 104 MEQ/L Carbon Dioxide Level 28.0 MEQ/L Anion Gap 7 MEQ/L Estimat Glomerular Filtration Rate 92 ML/MIN [facility] Medical Decision Making Medical Screen Exam Complete: Yes Emergency Medical Condition: Yes Medical Record Reviewed: Yes Differential Diagnosis UTI versus renal calculi versus colitis versus diverticulitis Narrative Course 42-year-old female presents emergency department for evaluation of left flank pain. Patient appears without distress. Patient is initially tachycardic. Patient is treated for pain. Laboratory Tests Test 01/28/18 22:50 White Blood Count 15.0 TH/MM3 Red Blood Count 4.91 MIL/MM3 Hemoglobin 14.2 GM/DL Hematocrit 41.4 % Mean Corpuscular Volume 84.5 FL Mean Corpuscular Hemoglobin 29.0 PG Mean Corpuscular Hemoglobin Concent 34.3 % Red Cell Distribution Width 13.2 % Platelet Count 286 TH/MM3 Mean Platelet Volume 7.6 FL Neutrophils (%) (Auto) 73.1 % Lymphocytes (%) (Auto) 19.4 % Monocytes (%) (Auto) 6.3 % Eosinophils (%) (Auto) 0.8 % Basophils (%) (Auto) 0.4 % Neutrophils # (Auto) 11.0 TH/MM3 Lymphocytes # (Auto) 2.9 TH/MM3 Monocytes # (Auto) 0.9 TH/MM3 Eosinophils # (Auto) 0.1 TH/MM3 Basophils # (Auto) 0.1 TH/MM3 CBC Comment DIFF FINAL Differential Comment Urine Color YELLOW Urine Turbidity CLEAR Urine pH 7.5 Urine Specific [place] 1.013 Urine Protein NEG mg/dL Urine Glucose (UA) NEG mg/dL Urine Ketones NEG mg/dL Urine Occult Blood NEG Urine Nitrite NEG Urine Bilirubin NEG Urine Urobilinogen LESS THAN 2.0 MG/DL Urine Leukocyte Esterase NEG Urine RBC 1 /hpf Urine WBC LESS THAN 1 /hpf Urine Squamous Epithelial Cells 5 /hpf Urine Bacteria RARE /hpf Microscopic Urinalysis Comment CULT NOT INDICATED Blood Urea Nitrogen 6 MG/DL Creatinine 0.69 MG/DL Random Glucose 98 MG/DL Calcium Level 8.8 MG/DL Sodium Level 139 MEQ/L Potassium Level 3.9 MEQ/L Chloride Level 104 MEQ/L Carbon Dioxide Level 28.0 MEQ/L Anion Gap 7 MEQ/L Estimat Glomerular Filtration Rate 92 ML/MIN Last Impressions Abdomen/Pelvis CT 01/28/182233 Signed Impressions: Service Date/Time: Sunday, January 28, 2018 23:30 - CONCLUSION: 1. No acute findings within the abdomen and pelvis. Mild constipation. 2. Previous cholecystectomy, hysterectomy and lumbar fusion surgery. 3. Small hiatal hernia. Vel Doran MD Patient has a mild leukocytosis. BMP is without acute concern. CT shows mild constipation and a small hiatal hernia. No acute changes. Patient is discharged home to follow-up with primary care provider. She agrees to return immediately with acute worsening symptoms. Diagnosis Primary Impression: Left flank pain Additional Impression: Constipation Qualified Codes: K59.00 - Constipation, unspecified Referrals: Primary Care Physician Patient Instructions: Constipation (ED), Flank Pain (ED), General Instructions Additional Instructions: MAINTAIN ADEQUATE ORAL HYDRATION FOLLOW UP WITH YOUR PRIMARY CARE PROVIDER MIRALAX 1 CAP FULL MIXED IN YOUR FAVORITE LIQUID TWO TIMES A DAY UNTIL YOU ARE HAVING REGULAR BOWEL MOVEMENTS. STOP IF DIARRHEA DEVELOPS RETURN TO ED WITH ACUTE WORSENING OF SYMPTOMS Med/Other Pt SpecificInfo: Prescription(s) given Scripts Tramadol (Ultram) 50 Mg Tab 50 MG PO Q8H Y for PAIN, #6 TAB 0 Refills Prov: Zuleyma Guillermo 01/28/18 Disposition: 01 DISCHARGE HOME Condition: Stable Zuleyma Guillermo Jan 28, 2018 22:18
[2018-01-28] MEDS ORDERED: SODIUM CHLOR 0.9% 1000 ML INJ 1,000 ML IV SCH (22:34)
[2018-01-28] MEDS ORDERED: SODIUM CHLORIDE 0.9% FLUSH 10 ML FLUSH IV FLUSH PRN (22:45)
[2018-01-28] MEDS ORDERED: KETOROLAC TROMETHAMINE 30 MG/ML (IVP) VIAL IVP ONE (22:45)
[2018-01-28 22:59] LABS: BASOPHIL # 0.1 TH/MM3 (0-0.2); BASOPHIL % 0.4 % (0.0-2.0); EOSINOPHIL # 0.1 TH/MM3 (0-0.4); EOSINOPHIL % 0.8 % (0.0-4.0); HEMATOCRIT 41.4 % (35.0-46.0); HEMOGLOBIN 14.2 GM/DL (11.6-15.3); LYMPH % 19.4 % (9.0-44.0); LYMPHOCYTE # 2.9 TH/MM3 (1.0-4.8); MEAN CELL VOLUME 84.5 FL (80.0-100.0); MEAN CORPUSCULAR HGB CONC 34.3 % (32.0-36.0); MEAN PLATELET VOLUME 7.6 FL (7.0-11.0); MONO % 6.3 % (0.0-8.0); MONOCYTE # 0.9 TH/MM3 (0-0.9); NEUT % 73.1 % (16.0-70.0); PLATELET COUNT 286 TH/MM3 (150-450); RED BLOOD COUNT 4.91 MIL/MM3 (4.00-5.30); RED CELL DISTRIBUTION WIDTH 13.2 % (11.6-17.2)
[2018-01-28 23:00] VITALS: RESP 18; O2SAT 99
[2018-01-28 23:03] LABS: BACTERIA, URINE RARE /hpf; BILIRUBIN, URINE NEG (NEG); BLOOD, URINE NEG (NEG); GLUCOSE,URINE NEG (NEG); KETONE, URINE NEG (NEG); NITRITE,URINE NEG (NEG); PH, URINE 7.5 (5.0-8.5); SQUAMOUS EPITHELIAL CELL URINE 5 /hpf (0-5); URINE COLOR YELLOW (YELLW/STRAW); URINE LEUKOCYTE ESTERASE NEG (NEG)
[2018-01-28 23:27] LABS: CALCIUM 8.8 MG/DL (8.5-10.1); CREATININE 0.69 MG/DL (0.50-1.00)
--- NOTE | 2018-01-28 23:51 | RADRPT ---
EXAM DATE/TIME: 01/28/2018 23:30 [facility] COMPARISON: No previous studies available for comparison. INDICATIONS : Left flank pain. ORAL CONTRAST: No oral contrast ingested. RADIATION DOSE: 17.00 CTDIvol (mGy) MEDICAL HISTORY : Hypertension. Gastroesophageal reflux disease. Chronic obstructive pulmonary disease.Cervical cancer. Diabetes. SURGICAL HISTORY : Cholecystectomy. Hysterectomy.Fusion, lumbar. ENCOUNTER: Initial ACUITY: 2 days PAIN SCALE: 8/10 LOCATION: Left flank TECHNIQUE: Volumetric scanning of the abdomen and pelvis was performed. Using automated exposure control and ad justment of the mA and/or kV according to patient size, radiation dose was kept as low as reasonably achievable to obtain optimal diagnostic quality images. DICOM format image data is available electro nically for review and comparison. FINDINGS: Lung bases are clear. No acute findings in the liver, spleen, adrenals, kidneys and pancreas. Previou s cholecystectomy. No free fluid. No bowel obstruction. No adenopathy. There is no constipation. Spinal fusion pump wire enters lumbar canal and extends into lower thoracic canal. Laminectomies lowe r lumbar spine. Previous surgical fusion across the lumbosacral junction with posterior hardware. CONCLUSION: 1. No acute findings within the abdomen and pelvis. Mild constipation. 2. Previous cholecystectomy, hysterectomy and lumbar fusion surgery. 3. Small hiatal hernia. Vel Doran MD on January 28, 2018 at 23:45 Board Certified Radiologist. This report was verified electronically.
[2018-01-28] MEDS ORDERED: TRAM50 PO (23:57)
== END 2018-01-29 00:13 | disposition home or self-care (01) ==
LOC: NEPD 20:57
DX: R10.9 Unspecified abdominal pain (principal); K59.00 Constipation, unspecified; K44.9 Diaphragmatic hernia without obstruction or gangrene; K21.9 Gastro-esophageal reflux disease without esophagitis; F12.90 Cannabis use, unspecified, uncomplicated; F17.200 Nicotine dependence, unspecified, uncomplicated
CPT/HCPCS: 74176; 80048; 81001; 85025; 96361; 96374; 99284; J1885; J7030